=== PATIENT | female | born 1980 | race Caucasian/White ===

== ENCOUNTER 2016-05-28 23:49 | Emergency (ER) | payer SELFPAY ==
--- NOTE | 2016-05-29 01:13 | ER Document Report ---
ED Medical Screen (RME) - General Stated Complaint: ABDOMINAL PAIN AND STRANGE RASH Time seen by provider: 01:09 Mode of Arrival: Ambulatory Information source: Patient Notes: 35-year-old female presents to ED for right upper quadrant pain. She is 5-1/2 weeks states her nausea is no more than her normal nausea. She also has a rash to her abdomen. She states she had one little spot on her left upper abdomen about 2 weeks ago and now it's all over her abdomen. Patient states she was here about 2 months ago with right upper quadrant pain and they diagnosed her with ovarian cyst. I have greeted and performed a rapid initial assessment of this patient. A comprehensive ED assessment and evaluation of the patient, analysis of test results and completion of medical decision making process will be conducted by an additional ED providers. TRAVEL OUTSIDE OF THE [place] IN LAST 30 DAYS: No - Related Data Allergies/Adverse Reactions: clindamycin Adverse Reaction (Mild, Verified 05/29/16 01:09) Hives Past Medical History Psychiatric Medical History: Reports: Hx Anxiety Past Surgical History: Reports: Hx Gynecologic Surgery - Left ectopic removal - Immunizations Hx Diphtheria, Pertussis, Tetanus Vaccination: No Physical Exam - Vital signs Vitals: Temp Pulse Resp BP Pulse Ox 98.1 F 79 16 107/63 100 05/28/16 23:59 05/28/16 23:59 05/28/16 23:59 05/28/16 23:59 05/28/16 23:59 Course - Vital Signs Vital signs: Temp Pulse Resp BP Pulse Ox 98.1 F 79 16 107/63 100 05/28/16 23:59 05/28/16 23:59 05/28/16 23:59 05/28/16 23:59 05/28/16 23:59
[2016-05-29 03:15] LABS: ABSOLUTE EOSINOPHILS # (AUTO) 0.3 10^3/uL (0.0-0.6); ABSOLUTE LYMPHOCYTES (AUTO) 3.2 10^3/uL (0.5-4.7); ABSOLUTE MONOCYTES (AUTO) 0.6 10^3/uL (0.1-1.4); ABSOLUTE NEUT (AUTO) 5.9 10^3/uL (1.7-8.2); BASOPHILS % (AUTO) 0.5 % (0-2); EOSINOPHILS % (AUTO) 2.8 % (0-6); HEMATOCRIT 43.3 % (36.0-47.0); HEMOGLOBIN 15.2 g/dL (12.0-15.5); HGB HCT DIFFERENCE 2.3; LYMPHOCYTES % (AUTO) 31.7 % (13-45); MEAN CORPUSCULAR HEMOGLOBIN 31.2 pg (27.0-33.4); MEAN CORPUSCULAR VOLUME 89 fl (80-97); MONOCYTES % (AUTO) 5.9 % (3-13); RED BLOOD COUNT 4.86 10^6/uL (3.72-5.28); RED CELL DISTRIBUTION WIDTH 12.3 % (11.5-14.0); SEGMENTED NEUTROPHILS % (AUTO) 59.1 % (42-78)
[2016-05-29 03:26] LABS: APPEARANCE,URINE CLEAR; BILIRUBIN,URINE NEGATIVE (NEGATIVE); GLUCOSE, URINE NEGATIVE (NEGATIVE); KETONES,URINE NEGATIVE (NEGATIVE); LEUKOCYTE ESTERASE,URINE NEGATIVE (NEGATIVE); NITRITE,URINE NEGATIVE (NEGATIVE); PROTEIN,URINE NEGATIVE (NEGATIVE); URINE SPECIFIC GRAVITY 1.012; UROBILINOGEN,URINE NEGATIVE mg/dL (<2.0)
[2016-05-29 03:31] LABS: ALANINE AMINOTRANSFERASE 26 U/L (9-52); ALBUMIN 4.3 g/dL (3.5-5.0); ALKALINE PHOSPHATASE 39 U/L (38-126); ANION GAP 10 (5-19); ASPARTATE AMINO TRANSFERASE 19 U/L (14-36); BILIRUBIN,TOTAL 0.5 mg/dL (0.2-1.3); BLOOD UREA NITROGEN 12 mg/dL (7-20); CALCIUM 9.9 mg/dL (8.4-10.2); CARBON DIOXIDE 27 mmol/L (22-30); CHLORIDE 102 mmol/L (98-107); CREATININE RESULT 0.73 mg/dL (0.52-1.25); GLUCOSE 85 mg/dL (75-110); LIPASE 155.2 U/L (23-300); TOTAL PROTEIN 7.4 g/dL (6.3-8.2)
--- NOTE | 2016-05-29 07:07 | ER Document Report ---
ED General - General Mode of Arrival: Ambulatory Information source: Patient TRAVEL OUTSIDE OF THE [place].S. IN LAST 30 DAYS: No - HPI Patient complains to provider of: Abdominal Pain Onset: Yesterday Onset/Duration: Sudden Associated symptoms: Other - Rash Similar symptoms previously: Yes - 03/12/2017 <SHANTA BOWMAN - Last Filed: 05/29/16 07:02> <MITCH ARAYA - Last Filed: 05/29/16 10:11> - General Chief Complaint: Abdominal Pain Stated Complaint: ABDOMINAL PAIN AND STRANGE RASH Notes: Patient is a 35-year-old female, with history of ectopic , presenting to the emergency department concerned of right suprapubic abdominal pain. Patient was seen here 03/12/2017 where she was diagnosed with a right ovarian cyst. Patient has not yet been seen by an ENROBER for her , but she has an appointment 06/15/2016 at [facility] in [place]. Patient wants to make sure her pain is not from another ectopic . Patient also is concerned about a rash on her abdomen that has slowly been spreading and becoming progressively more itchy. (SHANTA BOWMAN) - Related Data Allergies/Adverse Reactions: clindamycin Adverse Reaction (Mild, Verified 05/29/16 01:09) Hives Past Medical History - General Information source: Patient - Social History Smoking Status: Current Every Day Smoker Cigarette use (# per day): Yes Chew tobacco use (# tins/day): No Frequency of alcohol use: None Drug Abuse: None Family History: Reviewed & Not Pertinent Renal/ Medical History: Reports: Hx Ectopic , Hx Ovarian Cysts. Denies: Hx Peritoneal Dialysis Psychiatric Medical History: Reports: Hx Anxiety Past Surgical History: Reports: Hx Gynecologic Surgery - Left ectopic removal - Immunizations Hx Diphtheria, Pertussis, Tetanus Vaccination: No <SHANTA BOWMAN - Last Filed: 05/29/16 07:02> Review of Systems - Review of Systems Constitutional: No symptoms reported EENT: No symptoms reported Cardiovascular: No symptoms reported Respiratory: No symptoms reported Gastrointestinal: See HPI, Abdominal pain - Right suprapubic Genitourinary: No symptoms reported Female Genitourinary: See HPI, Musculoskeletal: No symptoms reported Skin: See HPI, Rash - Abdominal Hematologic/Lymphatic: No symptoms reported Neurological/Psychological: No symptoms reported -: Yes All other systems reviewed and negative <SHANTA BOWMAN - Last Filed: 05/29/16 07:02> Physical Exam - General General appearance: Appears well, Alert In distress: None - HEENT Head: Normocephalic, Atraumatic Eyes: Normal Pupils: PERRL - Respiratory Respiratory status: No respiratory distress Chest status: Nontender Breath sounds: Normal Chest palpation: Normal - Cardiovascular Rhythm: Regular Heart sounds: Normal auscultation Murmur: No - Abdominal Inspection: Other - See skin exam Distension: No distension Bowel sounds: Normal Tenderness: Tender - R. suprapubic tenderness to palpation - Back Back: Normal, Nontender - Extremities General upper extremity: Normal inspection, Nontender, Normal color, Normal ROM , Normal temperature General lower extremity: Normal inspection, Nontender, Normal color, Normal ROM , Normal temperature - Neurological Neuro grossly intact: Yes Cognition: Normal [place] Coma Scale Eye Opening: Spontaneous Mary Jo Coma Scale Verbal: Oriented Mary Jo Coma Scale Motor: Obeys Commands [place] Coma Scale Total: 15 Speech: Normal - Psychological Associated symptoms: Normal affect, Normal mood - Skin Skin Temperature: Warm Skin Moisture: Dry Skin irregularity: Rash Location of irregularity: Abdomen Character of irregularity: Other - Round (sized varies), erythematous, dry. Looks comparable to tinea versicolor. <SHANTA BOWMAN - Last Filed: 05/29/16 07:02> Course - Laboratory Result Diagrams: 05/29/16 02:55 05/29/16 02:55 <SHANTA BOWMAN - Last Filed: 05/29/16 07:02> - Laboratory Result Diagrams: 05/29/16 02:55 05/29/16 02:55 <MITCH ARAYA - Last Filed: 05/29/16 10:11> - Vital Signs Vital signs: Temp Pulse Resp BP Pulse Ox 97.6 F 79 16 107/63 100 05/29/16 07:30 05/28/16 23:59 05/28/16 23:59 05/28/16 23:59 05/28/16 23:59 (SHANTA BOWMAN) (MITCH ARAYA) - Laboratory Laboratory results interpreted by me: 05/29/16 02:55 Beta HCG, Quant 3511.20 H (SHANTA BOWMAN) (MITCH ARAYA) Discharge <SHANTA BOWMAN - Last Filed: 05/29/16 07:02> <QUIANA,MITCH - Last Filed: 05/29/16 10:11> - Discharge Clinical Impression: Pelvic pain affecting in first trimester, antepartum, Tinea versicolor Qualifiers: Weeks of gestation: less than 8 weeks Qualified Code(s): Z3A.01 - Less than 8 weeks gestation of Condition: Stable Disposition: HOME, SELF-CARE Additional Instructions: Tinea Versicolor: Tinea Versicolor is a fungus infection. Most often, it appears on the upper trunk, neck, shoulders, and face. It usually occurs in young adults. Tinea Versicolor is harmless. The spots of fungus infection may be home appliance installer than the normal skin during the summer because the spots don't warren. In the winter (or on areas of covered skin) they are usually darker than surrounding skin. Pelvic Pain in : Lower abdominal pain during can have many causes. We look for serious causes such as appendicitis, tubal , miscarriage, placental separation, or urinary tract infection. Less serious causes of pain include corpus luteum cyst (ovarian cyst of ) or stretching of the pelvic tissues by the enlarging uterus. Sometimes the pain comes from the bowels. If no specific cause for the pain is found, we attribute the pain to stretching of the uterine ligaments. This is called "round ligament strain." It is not dangerous. Just rest until the pain goes away. Call us or come back for reexamination if any problems occur, such as: (1) Pain that becomes more severe, steady, or becomes concentrated in one specific area. Also, pain that is more severe with movement or coughing. (2) Vomiting that persists or becomes more frequent. (3) Blood in the vomitus, urine, or bowel movements. Blood in the stool may have a tarry or black appearance. (4) Shaking chills or fever greater than 100 degrees. (5) The abdomen becomes more distended or swollen. (6) Bowel movements cease. (7) Vaginal bleeding. THE ULTRASOUND SHOWS A POSSIBLE EARLY . FOLLOW UP WITH [facility] THIS WEEK FOR REPEAT HORMONE LEVELS AND ULTRSOUND. YOU CAN ALSO ASK ABOUT WHEN TO START TREATING THE SKIN RASH. RETURN TO THE EMERGENCY ROOM IF ANY NEW OR WORSENING SYMPTOMS. Scribe Attestation: 05/29/16 10:11 I personally performed the services described in the documentation, reviewed and edited the documentation which was dictated to the scribe in my presence, and it accurately records my words and actions. (MITCH ARAYA) Scribe Documentation - Scribe Written by Scribe:: Shanta Bowman 05/29/2016 0702 acting as scribe for :: Quiana <SHANTA BOWMAN - Last Filed: 05/29/16 07:02>
[2016-05-29 10:25] VITALS: BP 101/61
== END 2016-05-29 10:17 | disposition home or self-care (01) ==
LOC: ER 23:49
DX: O34.81 Maternal care for other abnormalities of pelvic organs, first trimester (principal); N83.201 Unspecified ovarian cyst, right side; O26.891 Other specified pregnancy related conditions, first trimester; R10.2 Pelvic and perineal pain; O98.811 Other maternal infectious and parasitic diseases complicating pregnancy, first trimester; B36.0 Pityriasis versicolor; O99.331 Smoking (tobacco) complicating pregnancy, first trimester; F17.210 Nicotine dependence, cigarettes, uncomplicated; Z3A.01 Less than 8 weeks gestation of pregnancy; Z87.59 Personal history of other complications of pregnancy, childbirth and the puerperium
CPT/HCPCS: 36415; 76817; 80053; 81001; 83690; 84702; 85025; 99284

== ENCOUNTER 2016-06-07 20:58 | Emergency (ER) | payer SELFPAY ==
--- NOTE | 2016-06-07 21:47 | ER Document Report ---
ED Medical Screen (RME) - General Stated Complaint: ABDOMINAL PAINS Notes: 35 yo female c/o c/o right sided abdominal pain intermittanly x 2 days. pt is 7 wks . pt is presently being worked up for possible ectopic. TRAVEL OUTSIDE OF THE [place] IN LAST 30 DAYS: No - Related Data Allergies/Adverse Reactions: clindamycin Adverse Reaction (Mild, Verified 05/29/16 01:09) Hives Past Medical History Renal/ Medical History: Reports: Hx Ectopic , Hx Ovarian Cysts. Denies: Hx Peritoneal Dialysis Psychiatric Medical History: Reports: Hx Anxiety Past Surgical History: Reports: Hx Gynecologic Surgery - Left ectopic removal - Immunizations Hx Diphtheria, Pertussis, Tetanus Vaccination: No Physical Exam - Vital signs Vitals: Temp Pulse Resp BP Pulse Ox 98.1 F 76 16 112/59 L 100 06/07/16 21:23 06/07/16 21:23 06/07/16 21:23 06/07/16 21:23 06/07/16 21:23 Course - Vital Signs Vital signs: Temp Pulse Resp BP Pulse Ox 98.1 F 76 16 112/59 L 100 06/07/16 21:23 06/07/16 21:23 06/07/16 21:23 06/07/16 21:23 06/07/16 21:23
--- NOTE | 2016-06-08 02:37 | ER Document Report ---
ED General - General Chief Complaint: Abdominal Pain Stated Complaint: ABDOMINAL PAINS Notes: Patient is a 35 of female presents with complaint of abdominal pain and . This is her fifth . She has to live children. One miscarriage. She had one ectopic that ruptured and cryosurgery. She was seen for a 20th. Ultrasound showed a possible gestational sac but they cannot confirm an actual IUP. Follow-up with her OB doctor and she said that her hCG level initially increased but then stabilized. Patient is scheduled for a repeat ultrasound June 14; however, patient says her pain became worse tonight if her skin to the ER. She said pain was mostly in the right side. She has been constipated is well. She thinks that the pain may be related constipation but she is unsure. Pain is improved now comparison to what it was earlier today. No fevers. No bleeding. TRAVEL OUTSIDE OF THE [place] IN LAST 30 DAYS: No - Related Data Allergies/Adverse Reactions: clindamycin Adverse Reaction (Mild, Verified 05/29/16 01:09) Hives Home Medications: Current Home Medications Vit W-Ca,Fe,FA(<1 mg) [ Vitamins] 1 each PO DAILY 06/08/16 [ History] Past Medical History - Social History Smoking Status: Current Every Day Smoker Chew tobacco use (# tins/day): No Frequency of alcohol use: None Drug Abuse: None Family History: Reviewed & Not Pertinent Patient has suicidal ideation: No Patient has homicidal ideation: No Renal/ Medical History: Reports: Hx Ectopic , Hx Ovarian Cysts. Denies: Hx Peritoneal Dialysis Psychiatric Medical History: Reports: Hx Anxiety Past Surgical History: Reports: Hx Gynecologic Surgery - Left ectopic removal - Immunizations Hx Diphtheria, Pertussis, Tetanus Vaccination: No Review of Systems - Review of Systems Notes: My Normal Review Basic REVIEW OF SYSTEMS: CONSTITUTIONAL : Denies fever, chills, or sweats. Denies recent illness. RESPIRATORY: Denies cough, cold, or chest congestion. Denies shortness of breath, difficulty breathing, or wheezing. GASTROINTESTINAL: Denies abdominal pain. Denies nausea, vomiting, or diarrhea. Denies constipation. Last BM: GENITOURINARY: Denies difficulty urinating, painful urination, burning, frequency, or blood in urine. FEMALE GENITOURINARY: Abdominal pain in MUSCULOSKELETAL: Denies neck or back pain or joint pain or swelling. SKIN: Denies rash or skin lesions.s. NEUROLOGICAL: Denies altered mental status or loss of consciousness. Denies headache. Denies weakness or paralysis or loss of use of either side. Denies problems with gait or speech. Denies sensory or motor loss. ALL OTHER SYSTEMS REVIEWED AND NEGATIVE. Physical Exam - Vital signs Vitals: Temp Pulse Resp BP Pulse Ox 98.1 F 76 16 112/59 L 100 06/07/16 21:23 06/07/16 21:23 06/07/16 21:23 06/07/16 21:23 06/07/16 21:23 - Notes Notes: General Appearance: Well nourished, alert, cooperative, no acute distress, no obvious discomfort. Well-appearing Vitals: reviewed, See vital signs table. Head: no swelling or tenderness to the head Eyes: PERRL, EOMI, Conjuctiva clear Neck: Supple, no neck tenderness, No thyromegaly Lungs: No wheezing, No rales, No rhonci, No accessory muscle use, good air exchange bilaterally. Heart: Normal rate, Regular rythm, No murmur, no rub Abdomen: Normal BS, soft, No rigidity, No reproducible abdominal tenderness to palpation, No guarding, no rebound, no abdominal masses, no organomegaly Extremities: strength 5/5 in all extremities, good pulses in all extremities, no swelling or tenderness in the extremities, no edema. Skin: warm, dry, appropriate color, no rash Neuro: speech clear, oriented x 3, normal affect, responds appropriately to questions. Course - Vital Signs Vital signs: Temp Pulse Resp BP Pulse Ox 98.1 F 86 17 98/46 L 100 06/07/16 21:23 06/08/16 03:20 06/08/16 03:20 06/08/16 03:20 06/08/16 03:20 - Laboratory Laboratory results interpreted by me: 06/07/16 21:50 Serum HCG, Qual POSITIVE H - Transfer of Care Notes: 06/08/16 03:36 Patient's ultrasound shows an IUP. There is a small subchorionic hemorrhage. Patient's had no actual vaginal bleeding. Patient had a miscarriage as well as an ectopic in the past. She's never had received broken because she is Rh+. Her Rh status has not rechecked her due to her being sure of her history of not having to receive the medication and past due to her being Rh+. Patient has a repeat ultrasound scheduled for June 14 with her OB doctor. Patient encouraged keep that appointment. Patient encouraged return to ER immediately if she has worsening pain, heavy bleeding, or feels unwell. Patient agrees with plan and will be discharged home. Dictation of this chart was performed using voice recognition software; therefore, there may be some unintended grammatical errors. Discharge - Discharge Clinical Impression: Abdominal pain during Qualifiers: Trimester: first trimester Qualified Code(s): O26.891 - Other specified related conditions, first trimester; R10.9 - Unspecified abdominal pain Subchorionic hemorrhage Qualifiers: Fetus number: single or unspecified fetus Trimester: first trimester Qualified Code(s): O41.8X10 - Other specified disorders of amniotic fluid and membranes, first trimester, not applicable or unspecified Condition: Good Disposition: HOME, SELF-CARE Additional Instructions: Please follow up closely with your OB doctor on the eighth as scheduled. Please avoid sexual activity or heavy lifting until cleared by OB doctor. Please return to the ER if you have bleeding or worsening pain or fevers. Forms: Return to Work
[2016-06-08 02:46] LABS: APPEARANCE,URINE CLEAR; BILIRUBIN,URINE NEGATIVE (NEGATIVE); GLUCOSE, URINE NEGATIVE (NEGATIVE); KETONES,URINE NEGATIVE (NEGATIVE); LEUKOCYTE ESTERASE,URINE NEGATIVE (NEGATIVE); NITRITE,URINE NEGATIVE (NEGATIVE); PROTEIN,URINE NEGATIVE (NEGATIVE); URINE SPECIFIC GRAVITY 1.009; UROBILINOGEN,URINE NEGATIVE mg/dL (<2.0)
[2016-06-08 03:20] VITALS: BP 98/46
== END 2016-06-08 03:53 | disposition home or self-care (01) ==
LOC: ER 20:58
DX: O26.891 Other specified pregnancy related conditions, first trimester (principal); O41.8X10 Other specified disorders of amniotic fluid and membranes, first trimester, not applicable or unspecified; R10.9 Unspecified abdominal pain; F17.210 Nicotine dependence, cigarettes, uncomplicated; Z3A.01 Less than 8 weeks gestation of pregnancy
CPT/HCPCS: 36415; 76817; 81001; 84702; 84703; 93976; 99284

== ENCOUNTER 2016-06-17 09:27 | Emergency (ER) | payer SELFPAY ==
--- NOTE | 2016-06-17 11:21 | ER Document Report ---
ED General - General Chief Complaint: Vaginal Bleeding Stated Complaint: VAGINAL BLEEDING Time seen by provider: 11:15 Mode of Arrival: Ambulatory Information source: Patient Notes: This is a 35-year-old female 6, para 2, 2 miscarriages, one ectopic . Patient is currently approximately 8 weeks and she presents with some pelvic cramping and small amount of vaginal bleeding. Patient denies any significant pain. Patient denies fever, chills, nausea or vomiting. TRAVEL OUTSIDE OF THE [place] IN LAST 30 DAYS: No - HPI Onset: Yesterday Onset/Duration: Gradual Quality of pain: Cramping Severity: None Pain Level: Denies Associated symptoms: denies: Chills, Fever Exacerbated by: Denies Relieved by: Denies Similar symptoms previously: Yes Recently seen / treated by doctor: Yes - Related Data Allergies/Adverse Reactions: clindamycin Adverse Reaction (Mild, Verified 06/17/16 09:35) Hives Past Medical History - General Information source: Patient - Social History Smoking Status: Current Every Day Smoker Cigarette use (# per day): Yes - Half a pack per day Chew tobacco use (# tins/day): No Frequency of alcohol use: None Drug Abuse: None Lives with: Family Family History: Reviewed & Not Pertinent Patient has suicidal ideation: No Patient has homicidal ideation: No - Medical History Medical History: Negative Renal/ Medical History: Reports: Hx Ectopic , Hx Ovarian Cysts. Denies: Hx Peritoneal Dialysis Psychiatric Medical History: Reports: Hx Anxiety Past Surgical History: Reports: Hx Gynecologic Surgery - Left ectopic removal - Immunizations Hx Diphtheria, Pertussis, Tetanus Vaccination: No Review of Systems - Review of Systems Constitutional: denies: Chills, Fever EENT: No symptoms reported Cardiovascular: No symptoms reported Respiratory: No symptoms reported Gastrointestinal: No symptoms reported Genitourinary: No symptoms reported Female Genitourinary: See HPI Musculoskeletal: No symptoms reported Skin: No symptoms reported Hematologic/Lymphatic: No symptoms reported Neurological/Psychological: No symptoms reported Physical Exam - Vital signs Vitals: Temp Pulse Resp BP Pulse Ox 98.6 F 91 20 108/67 100 06/17/16 09:32 06/17/16 09:32 06/17/16 09:32 06/17/16 09:32 06/17/16 09:32 Notes: Physical exam: GENERAL: 35-year-old female, alert and oriented 3, no acute distress. HEAD: Atraumatic, normocephalic. EYES: Pupils equal round and reactive to light, extraocular movements intact, sclera anicteric, conjunctiva are normal. ENT: TMs normal, nares patent, oropharynx clear without exudates. Moist mucous membranes. NECK: Normal range of motion, supple without lymphadenopathy or JVD. LUNGS: Breath sounds clear to auscultation bilaterally and equal. No wheezes rales or rhonchi. HEART: Regular rate and rhythm without murmurs, rubs or gallops. ABDOMEN: Soft, normoactive bowel sounds. No tenderness to palpation. No guarding, no rebound. No masses appreciated. Pelvic: External genitalia normal, os closed, small amount of blood in the vaginal canal. No cervical motion tenderness, no adnexal tenderness, no masses. EXTREMITIES: Normal range of motion, no pitting or edema. No clubbing or cyanosis. NEUROLOGICAL: Cranial nerves II through XII grossly intact. Normal speech, normal gait. PSYCH: Normal mood, normal affect. SKIN: Warm, Dry, normal turgor, no rashes or lesions noted. Bedside ultrasound: Reveals an intrauterine at approximately 8 weeks gestation with a heartbeat of 160-167. There are two very small subchorionic hemorrhages. Course - Vital Signs Vital signs: Temp Pulse Resp BP Pulse Ox 99.0 F 71 18 104/65 100 06/17/16 12:24 06/17/16 12:24 06/17/16 12:24 06/17/16 12:24 06/17/16 12:24 - Laboratory Laboratory results interpreted by me: 06/17/16 10:25 Beta HCG, Quant [id number] H Discharge - Discharge Clinical Impression: vaginal bleeding, intrauterine Condition: Stable Disposition: HOME, SELF-CARE Additional Instructions: Note: The baby's heartbeat was 160-267 Your beta hCG (baby level) is rising appropriately Recommendations: Rest, drink plenty of fluids. Tylenol was okay. Do not take any ibuprofen/Advil/Motrin or aspirin. We normally recommend to avoid intercourse and heavy lifting in the setting of vaginal bleed beginning in early . Recommend you follow-up with your OB doctor. Referrals: JENNIE FORBES MD [Primary Care Provider] - Follow up as needed
[2016-06-17 12:28] LABS: CHLAM PCR NOT DETECTED (NOT DETECT)
[2016-06-17 12:51] VITALS: BP 104/65
== END 2016-06-17 12:29 | disposition home or self-care (01) ==
LOC: ER 09:27
DX: O20.9 Hemorrhage in early pregnancy, unspecified (principal); O99.331 Smoking (tobacco) complicating pregnancy, first trimester; F17.210 Nicotine dependence, cigarettes, uncomplicated; Z3A.08 8 weeks gestation of pregnancy; Z88.3 Allergy status to other anti-infective agents
CPT/HCPCS: 36415; 84702; 86900; 86901; 87210; 87491; 87591; 99284

== ENCOUNTER 2016-07-23 19:42 | Emergency (ER) | payer SELFPAY ==
--- NOTE | 2016-07-23 22:48 | ER Document Report ---
ED GI/ - General Mode of Arrival: Ambulatory Information source: Patient TRAVEL OUTSIDE OF THE [place] IN LAST 30 DAYS: No - HPI Patient complains to provider of: Vaginal bleeding Associated symptoms: Other - See above - General Chief Complaint: Vaginal Bleeding Stated Complaint: Vaginal Bleeding Notes: Patient is a 35 year old female who presents to the emergency department complaining of vaginal bleeding onset 3 days ago. Patient reports that she has had light spotting for the past 6 weeks after being told she had a subchorionic hemorrhage, in the past few days the bleeding has increased but has remained brownish. Patient also complains of constant cramping. Patient states she is 13 weeks and with one miscarriage and 1 ectopic which was surgically removed. Patient denies recent intercourse. PCP: [facility] ([facility]) - Related Data Allergies/Adverse Reactions: clindamycin Adverse Reaction (Mild, Verified 06/17/16 09:35) Hives Past Medical History - General Information source: Patient - Social History Smoking Status: Unknown if Ever Smoked Family History: Reviewed & Not Pertinent Renal/ Medical History: Reports: Hx Ectopic , Hx Ovarian Cysts Psychiatric Medical History: Reports: Hx Anxiety Past Surgical History: Reports: Hx Gynecologic Surgery - Left ectopic removal - Immunizations Hx Diphtheria, Pertussis, Tetanus Vaccination: No Review of Systems - Review of Systems Constitutional: No symptoms reported EENT: No symptoms reported Cardiovascular: No symptoms reported Respiratory: No symptoms reported Gastrointestinal: See HPI, Abdominal pain Genitourinary: No symptoms reported Female Genitourinary: See HPI, Vaginal bleeding Musculoskeletal: No symptoms reported Skin: No symptoms reported Hematologic/Lymphatic: No symptoms reported Neurological/Psychological: No symptoms reported -: Yes All other systems reviewed and negative Physical Exam - Vital signs Interpretation: Normal - General General appearance: Appears well, Alert - HEENT Head: Normocephalic, Atraumatic - Respiratory Respiratory status: No respiratory distress Chest status: Nontender Breath sounds: Normal Chest palpation: Normal - Cardiovascular Rhythm: Regular Heart sounds: Normal auscultation Murmur: No - Abdominal Inspection: Normal Distension: No distension Bowel sounds: Normal Tenderness: Nontender Organomegaly: No organomegaly - Extremities General upper extremity: Normal inspection General lower extremity: Normal inspection - Neurological Neuro grossly intact: Yes Cognition: Normal Orientation: AAOx4 Mary Jo Coma Scale Eye Opening: Spontaneous Mary Jo Coma Scale Verbal: Oriented Mary Jo Coma Scale Motor: Obeys Commands [place] Coma Scale Total: 15 Speech: Normal - Psychological Associated symptoms: Normal affect, Normal mood - Skin Skin Temperature: Warm Skin Moisture: Dry Skin Color: Normal Course - Re-evaluation Re-evalutation: 07/24/16 02:50 Patient presents emergency Department with cramping and spotting for the past 3 days. Patient has been seen multiple times in this current she is one miscarriage one ectopic . An ultrasound on 34 which showed 6 weeks and 5 days. Started having some spotting and some cramping 3 days ago. On examination no acute abdominal findings well-appearing and nontoxic ultrasound shows her to be 13 weeks and 3 days intrauterine . This time she is given instructions on threatened miscarriage close follow-up with [facility] in one to 2 days and discussed reasons for ED return sooner including increased pain bleeding or any other concerns speculative treatment (MARIBELL WANG) - Laboratory Laboratory results interpreted by me: 07/23/16 07/23/16 23:07 23:07 Beta HCG, Quant [id number] H Urine Blood SMALL H Urine Ascorbic Acid 20 H Discharge - Discharge Clinical Impression: Threatened miscarriage Condition: Stable Disposition: HOME, SELF-CARE Instructions: Threatened Miscarriage (ON LICENSE OF [facility]) Referrals: JENNIE FORBES MD [Primary Care Provider] - Follow up tomorrow (In one to 2 days return for increasing worsening or new symptoms) Scribe Attestation: 07/25/16 21:17 i personally performed the services described in the documentation, reviewed the documentation recorded by the scribe in my presence and it accurately and completely records my words and actions (MARIBELL WANG) Scribe Documentation - Scribe Written by Roman:: Mary Chi. 07/24/16, 0025 acting as scribe for :: Ivan
[2016-07-23 23:41] LABS: APPEARANCE,URINE CLEAR; BILIRUBIN,URINE NEGATIVE (NEGATIVE); GLUCOSE, URINE NEGATIVE (NEGATIVE); KETONES,URINE NEGATIVE (NEGATIVE); LEUKOCYTE ESTERASE,URINE NEGATIVE (NEGATIVE); NITRITE,URINE NEGATIVE (NEGATIVE); PROTEIN,URINE NEGATIVE (NEGATIVE); URINE SPECIFIC GRAVITY 1.026; UROBILINOGEN,URINE NEGATIVE mg/dL (<2.0)
== END 2016-07-24 03:00 | disposition home or self-care (01) ==
LOC: ER 19:42
DX: O20.0 Threatened abortion (principal); O26.891 Other specified pregnancy related conditions, first trimester; R10.9 Unspecified abdominal pain; Z3A.13 13 weeks gestation of pregnancy; Z87.59 Personal history of other complications of pregnancy, childbirth and the puerperium; Z98.890 Other specified postprocedural states
CPT/HCPCS: 36415; 51701; 76801; 81001; 84702; 93976; 99284

== ENCOUNTER 2016-09-14 22:02 | Outpatient (CLI) | payer SELFPAY ==
[2016-09-15 00:06] LABS: APPEARANCE,URINE SLIGHTLY-CLOUDY; BILIRUBIN,URINE NEGATIVE (NEGATIVE); GLUCOSE, URINE NEGATIVE (NEGATIVE); KETONES,URINE NEGATIVE (NEGATIVE); LEUKOCYTE ESTERASE,URINE NEGATIVE (NEGATIVE); NITRITE,URINE NEGATIVE (NEGATIVE); PROTEIN,URINE NEGATIVE (NEGATIVE); URINE BARBITURATES SCREEN NEGATIVE; URINE METHADONE SCREEN NEGATIVE; URINE OPIATES LOW NEGATIVE; URINE PHENCYCLIDINE SCREEN NEGATIVE; URINE SPECIFIC GRAVITY 1.019; UROBILINOGEN,URINE NEGATIVE mg/dL (<2.0)
[2016-09-15 00:07] LABS: BACTERIA,URINE TRACE /HPF
== END 2016-09-15 00:01 | disposition home or self-care (01) ==
LOC: LC 22:02
PROVIDERS: ATTEND Obstetrics & Gynecology
PROC: 4A1HXCZ Monitoring of Products of Conception, Cardiac Rate, External Approach (ICD-10-PCS; principal; 2016-09-14)
DX: O47.02 False labor before 37 completed weeks of gestation, second trimester (principal); Z3A.20 20 weeks gestation of pregnancy
CPT/HCPCS: 80307; 81001

== ENCOUNTER 2016-10-18 22:26 | Emergency (ER) | payer SELFPAY ==
--- NOTE | 2016-10-19 00:17 | ER Document Report ---
ED General - General Chief Complaint: Leg Swelling Stated Complaint: SWOLLEN,TENDER SPOT ON CALF,HEADACHE Time Seen by Provider: 10/19/16 00:01 Notes: Patient is a 36-year-old female who comes emergency department for 2 complaints. First complaint is a tender area in her right calf, she states 4 days ago she had a terrible cramp in it, she states this is improved but she still has a tender spot but feels like it is swollen at the base of her right calf. She denies swelling below this in her leg. 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 She denies history of blood clot. She denies any daily medications. Patient second complaint is a migraine headache, although she states that she has had almost complete resolution of the headache after checking in, she took Tylenol before checking into the emergency department. She states she gets this frequently, she has had them for years. She states she just is hoping for prescription for something to take in addition to the Tylenol for headaches which are intermittent at home. Denies head injury, fever, abdominal pain, flank pain, she states she is feeling the baby move normally. TRAVEL OUTSIDE OF THE [place] IN LAST 30 DAYS: No - Related Data Allergies/Adverse Reactions: clindamycin Adverse Reaction (Mild, Verified 09/14/16 22:17) Hives Past Medical History - General Information source: Patient - Social History Smoking Status: Never Smoker Frequency of alcohol use: None Drug Abuse: None Lives with: Family Family History: Reviewed & Not Pertinent Patient has suicidal ideation: No Patient has homicidal ideation: No Renal/ Medical History: Reports: Hx Ectopic , Hx Ovarian Cysts. Denies: Hx Peritoneal Dialysis Psychiatric Medical History: Reports: Hx Anxiety Past Surgical History: Reports: Hx Gynecologic Surgery - Left ectopic removal - Immunizations Hx Diphtheria, Pertussis, Tetanus Vaccination: No Review of Systems - Review of Systems Constitutional: No symptoms reported EENT: No symptoms reported Cardiovascular: See HPI Respiratory: No symptoms reported Gastrointestinal: No symptoms reported Genitourinary: No symptoms reported Female Genitourinary: No symptoms reported Musculoskeletal: See HPI Skin: No symptoms reported Hematologic/Lymphatic: No symptoms reported Neurological/Psychological: See HPI Physical Exam - Vital signs Vitals: Temp Pulse Resp BP Pulse Ox 98.1 F 83 16 110/61 100 10/18/16 22:45 10/18/16 22:45 10/18/16 22:45 10/18/16 22:45 10/18/16 22:45 Interpretation: Normal - General General appearance: Appears well, Alert In distress: None - Patient smiling, alert, well-appearing - HEENT Head: Normocephalic, Atraumatic Eyes: Normal Conjunctiva: Normal Extraocular movements intact: Yes Eyelashes: Normal Pupils: PERRL Nasal: Normal Mouth/Lips: Normal Mucous membranes: Normal Pharynx: Normal Neck: Normal - Respiratory Respiratory status: No respiratory distress Chest status: Nontender Breath sounds: Normal Chest palpation: Normal - Cardiovascular Rhythm: Regular. No: Tachycardia Heart sounds: Normal auscultation, S1 appreciated, S2 appreciated Murmur: No - Abdominal Inspection: Gravid female Distension: No distension Bowel sounds: Normal Tenderness: Nontender. No: Tender, Guarding Organomegaly: No organomegaly - Back Back: Normal, Nontender. No: Tender - Extremities General upper extremity: Normal inspection, Nontender, Normal color, Normal ROM , Normal temperature General lower extremity: Other - There is some tenderness at the base of the right calf, no swelling, no erythema, no induration or fluctuance, negative Homans sign, no swelling below this, normal distal neurovascular exam. No: Kam's sign - Neurological Neuro grossly intact: Yes Cognition: Normal Orientation: AAOx4 Mary Jo Coma Scale Eye Opening: Spontaneous Mary Jo Coma Scale Verbal: Oriented [place] Coma Scale Motor: Obeys Commands Mary Jo Coma Scale Total: 15 Speech: Normal Motor strength normal: LUE, RUE, LLE, RLE Sensory: Normal - Psychological Associated symptoms: Normal affect, Normal mood - Skin Skin Temperature: Warm Skin Moisture: Dry Skin Color: Normal Course - Re-evaluation Re-evalutation: Patient stating her headache is almost completely resolved, she declines any medication for this. No neurological deficits. Well-appearing and alert. Patient has some right calf tenderness, has some risk factors including and smoking, has never had a blood clot before. Examination does not specifically indicate one but I cannot rule it out because of the risk factors. Unfortunately we do not have any personnel present to perform the Doppler until about 9 hours from now. Discussed with patient. Patient provided with a prescription for this to be performed, she states that she will call in the morning and get this done to evaluate for blood clot. No other concerning abnormalities. Patient states understanding and agreement with plan. - Vital Signs Vital signs: Temp Pulse Resp BP Pulse Ox 97.9 F 81 17 117/71 98 10/19/16 00:20 10/19/16 00:20 10/19/16 00:20 10/19/16 00:20 10/19/16 00:20 Discharge - Discharge Clinical Impression: Right calf pain Headache Qualifiers: Headache type: unspecified Headache chronicity pattern: acute headache Intractability: not intractable Qualified Code(s): R51 - Headache Disposition: HOME, SELF-CARE Additional Instructions: You have risk factors for blood clot, please follow-up with the primary venous Doppler ordered, call the number tomorrow to get this done. Take the Reglan along with 25-50 mg of Benadryl if needed for headaches, you can combine this with Tylenol. Follow-up with primary care/PASSENGER SERVICE SUPERVISOR for Return to emergency department for any concerning or worsening symptoms Prescriptions: Metoclopramide HCl [Reglan] 5 mg PO ASDIR PRN #30 tablet PRN Reason: Forms: Follow-Up Outpatient Testing
[2016-10-19 01:03] VITALS: BP 117/71
== END 2016-10-19 00:19 | disposition home or self-care (01) ==
LOC: ER 22:26
DX: O99.89 Other specified diseases and conditions complicating pregnancy, childbirth and the puerperium (principal); M79.661 Pain in right lower leg; O99.352 Diseases of the nervous system complicating pregnancy, second trimester; G43.909 Migraine, unspecified, not intractable, without status migrainosus; O99.332 Smoking (tobacco) complicating pregnancy, second trimester; Z3A.25 25 weeks gestation of pregnancy
CPT/HCPCS: 99283

== ENCOUNTER → 2016-10-19 | Outpatient (CLI) | payer SELFPAY ==
--- NOTE | 2016-10-19 16:42 | XCELERA REPORT ---
[address] [address] Lower Extremity Venous Evaluation Name: ROSE FLORES Age: 36 yrs Gender: Female : 1980 Patient Status: Outpatient Patient Location: Study Date: 10/19/2016 03:07 PM Procedure: Color flow and duplex imaging of the veins of the right lower extremity as well as the left Common Femoral vein. Reason For Study: RLE PAIN Ordering Physician: GLENIS LAY Performed By: Martin Meza Right Sided Venous Evaluation Normal vessel filling wall to wall, compression and augmentation as well as Colour flow down to the infrageniculate veins. Left Sided Venous Evaluation The left common femoral vein is fully compressible. Spontaneous and phasic flow is present in the left common femoral vein. Interpretation Summary No duplex evidence of DVT or obstruction in the right lower extremity nor in the left Common Femoral vein. : GLENIS LAY > Stalin Glynn
== END ==
LOC: SP 14:57
PROVIDERS: ATTEND Internal Medicine Clinical Cardiac Electrophysiology
DX: M79.604 Pain in right leg (principal)
CPT/HCPCS: 93971

== ENCOUNTER 2016-11-23 04:10 | Inpatient (IN) | payer SELFPAY ==
[2016-11-23] MEDS ORDERED: BETAMET ACET/BETAMET NA INJ 6 MG/1 ML ONE (05:03)
[2016-11-23] MEDS ORDERED: MAGNESIUM SULFATE 8 GM/200 ML RTUPB IV ONE (05:04)
[2016-11-23] MEDS ORDERED: MAGNESIUM SULFATE 6 GM/150 ML IV ONE (05:15)
[2016-11-23] MEDS ORDERED: RINGERS SOLUTION,LACTATED 1,000 ML IV ONE (05:22)
[2016-11-23] MEDS ORDERED: RINGERS SOLUTION,LACTATED 1,000 ML IV PRN (05:22)
[2016-11-23 05:42] LABS: ABSOLUTE EOSINOPHILS # (AUTO) 0.2 10^3/uL (0.0-0.6); ABSOLUTE LYMPHOCYTES (AUTO) 2.5 10^3/uL (0.5-4.7); ABSOLUTE MONOCYTES (AUTO) 0.7 10^3/uL (0.1-1.4); ABSOLUTE NEUT (AUTO) 6.4 10^3/uL (1.7-8.2); BASOPHILS % (AUTO) 0.2 % (0-2); EOSINOPHILS % (AUTO) 1.8 % (0-6); HEMATOCRIT 32.6 % (36.0-47.0); HEMOGLOBIN 11.8 g/dL (12.0-15.5); HGB HCT DIFFERENCE 2.8; LYMPHOCYTES % (AUTO) 25.7 % (13-45); MEAN CORPUSCULAR HEMOGLOBIN 33.2 pg (27.0-33.4); MEAN CORPUSCULAR HGB CONC 36.1 g/dL (32.0-36.0); MEAN CORPUSCULAR VOLUME 92 fl (80-97); MONOCYTES % (AUTO) 7.3 % (3-13); RED BLOOD COUNT 3.54 10^6/uL (3.72-5.28); RED CELL DISTRIBUTION WIDTH 13.3 % (11.5-14.0); WHITE BLOOD COUNT 9.8 10^3/uL (4.0-10.5)
[2016-11-23] MEDS ORDERED: PENICILLIN G-K 5 MILLION UNIT VIAL ONE ×5 (05:46→22:58)
[2016-11-23 05:47] LABS: APPEARANCE,URINE CLEAR; BILIRUBIN,URINE NEGATIVE (NEGATIVE); GLUCOSE, URINE NEGATIVE (NEGATIVE); KETONES,URINE NEGATIVE (NEGATIVE); LEUKOCYTE ESTERASE,URINE NEGATIVE (NEGATIVE); NITRITE,URINE NEGATIVE (NEGATIVE); PROTEIN,URINE NEGATIVE (NEGATIVE); URINE SPECIFIC GRAVITY 1.005; UROBILINOGEN,URINE NEGATIVE mg/dL (<2.0)
[2016-11-23] MEDS ORDERED: PENICILLIN G POTASSIUM 5,000,000 UNIT in DEXTROSE 5%-WATER 100 ML IV ONE (06:00)
[2016-11-23 06:03] LABS: ALANINE AMINOTRANSFERASE 24 U/L (9-52); ALBUMIN 3.4 g/dL (3.5-5.0); ALKALINE PHOSPHATASE 54 U/L (38-126); AMYLASE 52 U/L (30-110); ANION GAP 8 (5-19); ASPARTATE AMINO TRANSFERASE 17 U/L (14-36); BILIRUBIN,DIRECT 0.3 mg/dL (0.0-0.4); BILIRUBIN,TOTAL 0.4 mg/dL (0.2-1.3); BLOOD UREA NITROGEN 6 mg/dL (7-20); CALCIUM 9.2 mg/dL (8.4-10.2); CARBON DIOXIDE 22 mmol/L (22-30); CHLORIDE 107 mmol/L (98-107); CREATININE RESULT 0.54 mg/dL (0.52-1.25); GLUCOSE 74 mg/dL (75-110); LIPASE 102.7 U/L (23-300); POTASSIUM 4.2 mmol/L (3.6-5.0); TOTAL PROTEIN 6.3 g/dL (6.3-8.2)
[2016-11-23] MEDS: MAGNESIUM SULFATE 20 GM/500 ML RTUINJ IV PRN ×3 (06:11→23:32)
[2016-11-23 06:14] LABS: URINE BARBITURATES SCREEN NEGATIVE; URINE METHADONE SCREEN NEGATIVE; URINE OPIATES LOW NEGATIVE; URINE PHENCYCLIDINE SCREEN NEGATIVE
--- NOTE | 2016-11-23 07:10 | L&D Progress Notes ---
PROGRESS NOTES Datetime Report Generated by CPN: 11/23/2016 07:10 PROGRESS NOTE Impression: Labor Plan: Continue Present Management Comment: cont mag, steroids, pcn, valtrex VAGINAL EXAM Dilatation: 2 Dilatation: 2 Effacement: 50 Effacement: 50 Station: -1 Station: -2 Contractions: q1-5 min FETUS A FHR Category: Category I SIGNATURE SIGNATURE: [id number] Signature: with User ID: [email or web address]
[2016-11-23 07:47] LABS: CHLAM PCR NOT DETECTED (NOT DETECT)
[2016-11-23] MEDS ORDERED: PENICILLIN G POTASSIUM 2,500,000 UNIT in DEXTROSE 5%-WATER 50 ML IV SCH (10:00)
[2016-11-23] MEDS: PENICILLIN G-K 5 MILLION UNIT VIAL IV SCH ×4 (11:12→23:09)
[2016-11-23] MEDS ORDERED: VALACYCLOVIR HCL 500 MG TABLET ONE (14:49)
[2016-11-23] MEDS: VALACYCLOVIR HCL 500 MG TABLET PO SCH (15:03)
[2016-11-23] MEDS ORDERED: ONDANSETRON HCL INJ/PF 4 MG/2 ML SDV ONE (15:25)
[2016-11-23] MEDS ORDERED: ONDANSETRON HCL INJ/PF 4 MG/2 ML SDV IV ONE (15:49)
[2016-11-23] MEDS ORDERED: PROMETHAZINE HCL INJ 25 MG/1 ML VIAL IV ONE (16:14)
[2016-11-23] MEDS ORDERED: PROMETHAZINE HCL INJ 25 MG/1 ML VIAL ONE (16:19)
[2016-11-24] MEDS ORDERED: PENICILLIN G-K 5 MILLION UNIT VIAL ONE ×2 (02:56→06:46)
[2016-11-24] MEDS: PENICILLIN G-K 5 MILLION UNIT VIAL IV SCH ×2 (03:03→07:00)
[2016-11-24] MEDS ORDERED: BETAMET ACET/BETAMET NA INJ 6 MG/1 ML ONE ×2 (04:56→05:00)
--- NOTE | 2016-11-24 10:10 | L&D Progress Notes ---
PROGRESS NOTES Datetime Report Generated by CPN: 11/24/2016 10:10 PROGRESS NOTE Impression: Labor Plan: Continue Present Management; Transfer Informed Consent Obtained: Risks, Benefits and Alternatives Discussed Vital Signs : Reviewed; Within Normal Limits Comment: Pt here for labor. Cvx 1.5/50/-1. Only rare ctx now that magnesium off since 0700. Pt comfortable and CAT I NST. Plan to transfer to floor for monitoring overnight. May be able to discharge tomorrow. VAGINAL EXAM Dilatation: 2 Effacement: 50 Station: -1 Contractions: rare FETUS A FHR - Baseline: 125 Monitoring: External US Variability: Moderate 6-25bpm Accelerations: 15X15 Decelerations: None FHR Category: Category I FETUS C SIGNATURE: [id number] Signature: with User ID: [email or web address]
[2016-11-25 09:03] VITALS: BP 107/61
[2016-11-25] MEDS: VALACYCLOVIR HCL 500 MG TABLET PO SCH (09:17)
--- NOTE | 2016-11-25 09:58 | PDOC DISCHARGE SUMMARY ---
General - Admit/Disc Date/PCP Admission Date/Primary Care Provider: 11/23/16 05:10 GORDON PLASCENCIA MD Discharge Date: 11/25/16 - Discharge Diagnosis (1) uterine contractions Is this a current diagnosis for this admission?: Yes Summary: resolved with magnesium sulfate s/p betamethasone 12 mg on 11/24/16 and 11/23/16 (2) Supervision of normal IUP (intrauterine ) in multigravida Is this a current diagnosis for this admission?: Yes Summary: f/u as scheduled with ob provider. - Additional Information Discharge Diet: Regular Discharge Activity: Activity As Tolerated Home Medications: Vit W-Ca,Fe,FA(<1 mg) [ Vitamins] 1 each PO DAILY 06/08/16 Aspirin [Aspirin 81 mg Chewable Tablet] 1 tab PO DAILY 11/23/16 Valacyclovir HCl [Valtrex 500 mg Tablet] 500 mg PO DAILY 11/23/16 History of Present Illness Patient complains of: ctx abodominal pain History of Present Illness: ROSE FLORES is a 36 year old female Physical Exam - Physical Exam Vital Signs: Temp Pulse Resp BP Pulse Ox 98.0 F 83 18 107/61 99 11/25/16 08:28 11/25/16 08:28 11/25/16 08:28 11/25/16 08:28 11/25/16 08:28 Intake & Output 11/24/16 11/25/16 11/26/16 06:59 06:59 06:59 Intake Total 480 Balance 480 General appearance: PRESENT: no acute distress Head exam: PRESENT: atraumatic Mouth exam: PRESENT: moist Respiratory exam: PRESENT: clear to auscultation elizabeth Vascular exam: PRESENT: normal capillary refill GI/Abdominal exam: PRESENT: normal bowel sounds Musculoskeletal exam: PRESENT: ambulatory Neurological exam: PRESENT: alert, oriented to time, oriented to situation, reflexes normal Psychiatric exam: PRESENT: normal mood Skin exam: PRESENT: intact - Gynecological Exam Labia: normal Urethra: normal Introitus: normal Perineum: normal Vagina: other - 1-2/80/-1 Result Laboratory Results: 11/23/16 05:23 11/23/16 05:23 Plan Discharge Plan: d/c home undelivered in stable condition f/u with ob provider return prn if symptoms return
--- NOTE | 2016-11-27 11:36 | RADIOLOGY REPORT (SQ) ---
EXAM DESCRIPTION: U/S OB LIMITED COMPLETED DATE/TIME: 11/23/2016 6:26 am REASON FOR STUDY: BS U/S for EFW, HARRY, Presentation, placenta loc. LIMITATIONS: Targeted, limited transabdominal survey performed as clinically request. COMPARISON: 05/29/2016. FINDINGS: Transabdominal sonogram demonstrates a live intrauterine gestation. Estimated gestational age based on ultrasound biometrics: 31 weeks 3 days Ultrasound based BETTIE: 01/22/2017. heart rate: 158 beats per minute. Placenta: Posterior. Estimated weight: 1499 g +/- 220 g. Estimated weight percentile equals 35, Renard. position: Vertex. HARRY: 12.1 cm. IMPRESSION: Limited survey of a live intrauterine fetus, as above. TECHNICAL DOCUMENTATION: JOB ID: [id number] [employer]- All Rights Reserved
== END 2016-11-25 10:36 | disposition home or self-care (01) | DRG 778 ==
LOC: LC 04:10 → LR 05:10 → 2S 11-24 10:14
PROVIDERS: ADMIT Specialist; ATTEND Specialist
PROC: 4A1HXCZ Monitoring of Products of Conception, Cardiac Rate, External Approach (ICD-10-PCS; principal; 2016-11-23)
DX: O60.03 Preterm labor without delivery, third trimester (principal); O98.313 Other infections with a predominantly sexual mode of transmission complicating pregnancy, third trimester; O99.333 Smoking (tobacco) complicating pregnancy, third trimester; F17.210 Nicotine dependence, cigarettes, uncomplicated; A60.00 Herpesviral infection of urogenital system, unspecified; Z3A.30 30 weeks gestation of pregnancy
CPT/HCPCS: 36415; 76815; 80053; 80307; 81001; 82150; 83690; 83735; 85025; 86592; 86850; 86900; 86901; 87081; 87086; 87210; 87491; 87591; 96372; J0702; J2405; J2540; J2550; J3475

== ENCOUNTER 2016-12-23 01:54 | Outpatient (CLI) | payer SELFPAY ==
[2016-12-23 02:36] LABS: APPEARANCE,URINE CLEAR; BILIRUBIN,URINE NEGATIVE (NEGATIVE); GLUCOSE, URINE NEGATIVE (NEGATIVE); KETONES,URINE NEGATIVE (NEGATIVE); LEUKOCYTE ESTERASE,URINE NEGATIVE (NEGATIVE); NITRITE,URINE NEGATIVE (NEGATIVE); PROTEIN,URINE NEGATIVE (NEGATIVE); URINE SPECIFIC GRAVITY 1.011; UROBILINOGEN,URINE NEGATIVE mg/dL (<2.0)
[2016-12-23 02:51] LABS: URINE BARBITURATES SCREEN NEGATIVE; URINE METHADONE SCREEN NEGATIVE; URINE OPIATES LOW NEGATIVE; URINE PHENCYCLIDINE SCREEN NEGATIVE
[2016-12-23 04:17] LABS: ABSOLUTE EOSINOPHILS # (AUTO) 0.1 10^3/uL (0.0-0.6); ABSOLUTE LYMPHOCYTES (AUTO) 2.4 10^3/uL (0.5-4.7); ABSOLUTE MONOCYTES (AUTO) 0.7 10^3/uL (0.1-1.4); ABSOLUTE NEUT (AUTO) 7.2 10^3/uL (1.7-8.2); BASOPHILS % (AUTO) 0.2 % (0-2); HEMATOCRIT 30.9 % (36.0-47.0); HEMOGLOBIN 11.3 g/dL (12.0-15.5); LYMPHOCYTES % (AUTO) 23.4 % (13-45); MEAN CORPUSCULAR HEMOGLOBIN 33.4 pg (27.0-33.4); MEAN CORPUSCULAR HGB CONC 36.5 g/dL (32.0-36.0); MEAN CORPUSCULAR VOLUME 91 fl (80-97); MONOCYTES % (AUTO) 6.4 % (3-13); RED BLOOD COUNT 3.38 10^6/uL (3.72-5.28); RED CELL DISTRIBUTION WIDTH 12.9 % (11.5-14.0); WHITE BLOOD COUNT 10.4 10^3/uL (4.0-10.5)
[2016-12-23 04:27] LABS: ALANINE AMINOTRANSFERASE 22 U/L (9-52); ALBUMIN 3.2 g/dL (3.5-5.0); ALKALINE PHOSPHATASE 67 U/L (38-126); ANION GAP 7 (5-19); ASPARTATE AMINO TRANSFERASE 15 U/L (14-36); BILIRUBIN,DIRECT 0.2 mg/dL (0.0-0.4); BILIRUBIN,TOTAL 0.3 mg/dL (0.2-1.3); BLOOD UREA NITROGEN 8 mg/dL (7-20); CALCIUM 8.9 mg/dL (8.4-10.2); CARBON DIOXIDE 23 mmol/L (22-30); CHLORIDE 108 mmol/L (98-107); CREATININE RESULT 0.66 mg/dL (0.52-1.25); GLUCOSE 78 mg/dL (75-110); POTASSIUM 3.7 mmol/L (3.6-5.0); TOTAL PROTEIN 5.7 g/dL (6.3-8.2)
[2016-12-23 05:06] LABS: ADD HIVPANEL? NO; HIV (1 AND 2) ANTIBODY NEGATIVE (NEGATIVE)
--- NOTE | 2016-12-23 05:30 | Non Stress Test Report ---
Non Stress Test Datetime Report Generated by CPN: 12/23/2016 05:30 DEMOGRAPHIC EGA NST: 35.1 INDICATION Indication for Study: Ordered by Provider URINE RESULTS Urine Protein, NST: Negative Urine Ketones - NST: Negative Urine Glucose - NST: Negative Urine Blood - NST: Positive MONITORING Monitor Explained: Monitor Explained; Test Explained; Patient Verbalized Understanding Time on Monitor: 12/23/2016 02:20 Time off Monitor: 12/23/2016 05:17 NST Duration: 177 NST INTERVENTIONS NST Interventions: PO Hydration; Reposition Patient Physician Notified NST: Dr. Neilsen BABY A: [id number] BABY A Movement : Present Contraction Frequency : Occasional FHR Baseline : 125 Accelerations : 15X15 Decelerations : None Variability : Moderate 6-25bpm NST Review: Meets Criteria for Reactive NST NST Review and Verified By : Itz Ibanez RN NSRobin Results: Reactive NST REPORT Report Trigger: Send Report
[2016-12-23 05:56] LABS: CHLAM PCR NOT DETECTED (NOT DETECT)
[2016-12-24 07:38] LABS: HEPATITIS C VIRUS AB <0.1 s/co ratio (0.0-0.9)
== END 2016-12-23 05:54 | disposition home or self-care (01) ==
LOC: LC 01:54
PROVIDERS: ATTEND Specialist
PROC: 4A1HXCZ Monitoring of Products of Conception, Cardiac Rate, External Approach (ICD-10-PCS; principal; 2016-12-23)
DX: O47.03 False labor before 37 completed weeks of gestation, third trimester (principal); Z3A.35 35 weeks gestation of pregnancy
CPT/HCPCS: 36415; 59025; 80053; 80307; 81001; 85025; 86592; 86701; 86762; 86803; 86804; 86850; 86900; 86901; 87081; 87340; 87491; 87591

== ENCOUNTER 2016-12-29 15:41 | Outpatient (CLI) | payer SELFPAY ==
--- NOTE | 2016-12-29 17:06 | RADIOLOGY REPORT (SQ) ---
EXAM DESCRIPTION: U/S OB LIMITED COMPLETED DATE/TIME: 12/29/2016 4:46 pm REASON FOR STUDY: GROWTH/HARRY COMPARISON: OB ultrasound 11/23/2016, 05/29/2016 TECHNIQUE: Limited transabdominal grayscale ultrasound for evaluation of specific requested obstetri carlos a parameters. LIMITATIONS: None. FINDINGS: CERVICAL LENGTH: Not evaluated HARRY: 17.9 cm. FHR: 128 beats per minute. PRESENTATION: Cephalic. OTHER: Placenta fundal grade 2 By multiple measurements, estimated weight is 2945 g, at the 54th percentile. Estimated gestat ional age 36 weeks 1 day. IMPRESSION: LIMITED OBSTETRICAL ULTRASOUND WITH MEASURED PARAMETERS DELINEATED ABOVE. Trimester of : Third trimester - 28 weeks to delivery. TECHNICAL DOCUMENTATION: JOB ID: [id number] [employer]- All Rights Reserved
--- NOTE | 2016-12-29 17:15 | Non Stress Test Report ---
Non Stress Test Datetime Report Generated by CPN: 12/29/2016 17:15 DEMOGRAPHIC EGA NST: 36.0 INDICATION Indication for Study: Other Indication for Study (NST) Other: sent from [facility] for u/s and nst VITAL SIGNS Temperature - NST: 99.1 Pulse - NST: 77 RESP - NST: 18 NBPSYS NST: 100 NBPDIA NST: 52 MONITORING Monitor Explained: Monitor Explained; Test Explained; Patient Verbalized Understanding Time on Monitor: 12/29/2016 15:52 Time off Monitor: 12/29/2016 16:13 NST Duration: 21 NST INTERVENTIONS NST Interventions: PO Hydration Physician Notified NST: H Carlos Eduardo CNM BABY A: [id number] BABY A Movement : Present Contraction Frequency : denies FHR Baseline : 120 Accelerations : 15X15 Decelerations : None Variability : Moderate 6-25bpm NST Review: Meets Criteria for Reactive NST NST Review and Verified By : Itz Broderick RN NST Results: Reactive NST REPORT Report Trigger: Send Report
== END 2016-12-29 16:57 | disposition home or self-care (01) ==
LOC: LC 15:41
PROVIDERS: ATTEND Obstetrics & Gynecology
PROC: 4A1HXCZ Monitoring of Products of Conception, Cardiac Rate, External Approach (ICD-10-PCS; principal; 2016-12-29)
DX: Z34.93 Encounter for supervision of normal pregnancy, unspecified, third trimester (principal)
CPT/HCPCS: 59025; 76815

== ENCOUNTER 2017-01-05 14:56 | Outpatient (CLI) | payer MEDICAID ==
--- NOTE | 2017-01-05 15:20 | Non Stress Test Report ---
Non Stress Test Datetime Report Generated by CPN: 01/05/2017 15:20 DEMOGRAPHIC EGA NST: 37.0 INDICATION Indication for Study: Decreased Movement; Ordered by Provider MONITORING Monitor Explained: Monitor Explained; Test Explained; Patient Verbalized Understanding Time on Monitor: 01/05/2017 14:52 Time off Monitor: 01/05/2017 15:20 NST Duration: 28 NST INTERVENTIONS NST Interventions: PO Hydration; Reposition Patient Physician Notified NST: J. Castro, CNM BABY A: [id number] BABY A Movement : Present Contraction Frequency : intermittent FHR Baseline : 115 Accelerations : 15X15 Decelerations : None Variability : Moderate 6-25bpm NST Review: Meets Criteria for Reactive NST NST Review and Verified By : Lynn Camp RNC NST Results: Reactive NST REPORT Report Trigger: Send Report
== END 2017-01-05 15:24 | disposition home or self-care (01) ==
LOC: LC 14:56
PROVIDERS: ATTEND Student in an Organized Health Care Education/Training Program
PROC: 4A1HXCZ Monitoring of Products of Conception, Cardiac Rate, External Approach (ICD-10-PCS; principal; 2017-01-05)
DX: O36.8130 Decreased fetal movements, third trimester, not applicable or unspecified (principal); Z3A.37 37 weeks gestation of pregnancy
CPT/HCPCS: 59025

== ENCOUNTER 2017-01-31 06:33 | Inpatient (IN) | payer MEDICAID ==
[2017-01-31] MEDS ORDERED: RINGERS SOLUTION,LACTATED 1,000 ML IV PRN (06:49)
[2017-01-31] MEDS ORDERED: OXYTOCIN/NORMAL SALINE 20 UNIT/1,000 ML RTUINJ IV PRN ×2 (06:49→16:51)
[2017-01-31] MEDS ORDERED: RINGERS SOLUTION,LACTATED 300 ML IV ONE (06:49)
[2017-01-31 07:24] LABS: ABSOLUTE EOSINOPHILS # (AUTO) 0.1 10^3/uL (0.0-0.6); ABSOLUTE LYMPHOCYTES (AUTO) 2.2 10^3/uL (0.5-4.7); ABSOLUTE MONOCYTES (AUTO) 0.6 10^3/uL (0.1-1.4); ABSOLUTE NEUT (AUTO) 6.2 10^3/uL (1.7-8.2); BASOPHILS % (AUTO) 0.2 % (0-2); EOSINOPHILS % (AUTO) 1.5 % (0-6); HEMATOCRIT 30.3 % (36.0-47.0); HEMOGLOBIN 11.1 g/dL (12.0-15.5); MEAN CORPUSCULAR HEMOGLOBIN 33.6 pg (27.0-33.4); MEAN CORPUSCULAR HGB CONC 36.7 g/dL (32.0-36.0); MEAN CORPUSCULAR VOLUME 92 fl (80-97); MONOCYTES % (AUTO) 6.7 % (3-13); RED BLOOD COUNT 3.31 10^6/uL (3.72-5.28); RED CELL DISTRIBUTION WIDTH 12.9 % (11.5-14.0); SEGMENTED NEUTROPHILS % (AUTO) 67.6 % (42-78); WHITE BLOOD COUNT 9.2 10^3/uL (4.0-10.5)
[2017-01-31 07:54] LABS: APPEARANCE,URINE SLIGHTLY-CLOUDY; BILIRUBIN,URINE NEGATIVE (NEGATIVE); GLUCOSE, URINE NEGATIVE (NEGATIVE); KETONES,URINE NEGATIVE (NEGATIVE); LEUKOCYTE ESTERASE,URINE LARGE (NEGATIVE); NITRITE,URINE NEGATIVE (NEGATIVE); PROTEIN,URINE NEGATIVE (NEGATIVE); URINE SPECIFIC GRAVITY 1.011; UROBILINOGEN,URINE NEGATIVE mg/dL (<2.0)
[2017-01-31] MEDS ORDERED: OXYTOCIN/NORMAL SALINE 0 UNIT/0 ML RTUINJ ONE (08:01)
[2017-01-31 08:09] LABS: URINE BARBITURATES SCREEN NEGATIVE; URINE METHADONE SCREEN NEGATIVE; URINE OPIATES LOW NEGATIVE; URINE PHENCYCLIDINE SCREEN NEGATIVE
[2017-01-31] MEDS ORDERED: LIDOCAINE 1% INJ-PF (10 MG/ML) 30 ML SDV ONE (08:17)
[2017-01-31] MEDS ORDERED: MISOPROSTOL 0.2 MG TABLET ONE (08:17)
[2017-01-31] MEDS ORDERED: OXYTOCIN/NORMAL SALINE 20 UNIT/1,000 ML RTUINJ ONE ×2 (08:17→17:06)
[2017-01-31] MEDS ORDERED: PROMETHAZINE HCL INJ 25 MG/1 ML VIAL ONE (14:24)
[2017-01-31] MEDS ORDERED: NALBUPHINE HCL INJ 10 MG/1 ML AMPULE ONE (14:24)
[2017-01-31] MEDS ORDERED: PROMETHAZINE HCL INJ 25 MG/1 ML VIAL IV ONE (14:27)
[2017-01-31] MEDS ORDERED: NALBUPHINE HCL INJ 10 MG/1 ML AMPULE INJ ONE (14:27)
[2017-01-31] MEDS ORDERED: MEASLES,MUMPS&RUBELLA VACC/PF 0.5 ML VIAL SUBCUT PRN (16:51)
[2017-01-31] MEDS ORDERED: ZOLPIDEM TARTRATE 5 MG TABLET PO PRN (16:51)
[2017-01-31] MEDS ORDERED: ACETAMINOPHEN WITH CODEINE #3 TABLET PO PRN (16:51)
[2017-01-31] MEDS ORDERED: DIPH/PERTUSS(ACELL)/TETANUS VAC/PF 0.5 ML SYR (>=10YO) IM PRN (16:51)
[2017-01-31] MEDS ORDERED: DIBUCAINE 1% OINTMENT 28 GM TP PRN (16:51)
[2017-01-31] MEDS ORDERED: BENZOCAINE/MENTHOL AEROSOL SPRAY 56 ML TOP PRN (16:51)
[2017-01-31] MEDS ORDERED: METHYLERGONOVINE MALEATE INJ/PF 0.2 MG/1 ML AMPULE ONE (17:17)
[2017-01-31] MEDS ORDERED: METHYLERGONOVINE MALEATE INJ/PF 0.2 MG/1 ML AMPULE IM ONE (17:24)
--- NOTE | 2017-01-31 17:58 | Delivery Summary ---
Del Sum A-C Datetime Report Generated by CPN: 01/31/2017 17:58 DELIVERY PERSONNEL DELIVERY PERSONNEL: [id number] Delivery Doctor:: Jeri Thibodeaux CNM Labor and Delivery Nurse:: Josh Crowley RNgauger chief Nurse:: RAMY Valdez Nursery Nurse:: Valeria James RN Scene Shifter/JELLY FILTER TENDER: Milvia Garsia CNA II Scene Shifter/JELLY FILTER TENDER: Lela Beasley, ANESTHESIOLOGIST PHYSICIAN MATERNAL INFORMATION Delivery Anesthesia: None Medications After Delivery: Pitocin Bolus-Please Comment; Pitocin Drip 20 Units/1000ml NSS; Other-Please Comment Meds After Delivery Comment: Cytotec 1000 mg DC Estimated Blood Loss (ml): 350 Maternal Complications: None Provider Comments: of of viable female infant, head delivered without difficulty, shoulders and body followed with gentle traction, infant with spontaneous cry and respirations to maternal abdomen, cord clamped X2 cut free, after 2 min delay, spontaneous delivery of placenta via begum, appears intact, 3 VC, vagina and perineum inspected, lacerations repaired as above, 1000 mcg rectal cytotec given for boggie lower uterine segment, better with cytotec and massage and IV pitocin, good hemostasis acheived. Routine pp care, mother and in stable condition. LABOR SUMMARY EDC: 01/26/2017 00:00 No. Babies in Womb: 1 Attempted: No Labor Anesthesia: IV Sedation LABOR INFORMATION Reason for Induction: Post Dates Onset of Labor: 01/31/2017 08:40 Complete Dilatation: 01/31/2017 15:52 Oxytocin: Induction Group B Beta Strep: Negative Antibiotics # of Doses: 0 Steroids Given: Full Course Reason Steroids Not Administered: Indication MEMBRANES Membranes Rupture Method: Artificial Rupture of Membranes: 01/31/2017 13:51 Length of Rupture (hr): 2.30 Amniotic Fluid Color: Clear Amniotic Fluid Amount: Moderate Amniotic Fluid Odor: Normal STAGES OF LABOR Stage 1 hr: 7 Stage 1 min: 12 Stage 2 hr: 0 Stage 2 min: 17 Stage 3 hr: 0 Stage 3 min: 2 Total Time in Labor hr: 7 Total Time in Labor min: 31 VAGINAL DELIVERY Episiotomy: None Laceration #1: Periurethral Laceration Extension #1: First Degree Laceration #2: Perineal Laceration Extension #2: First Degree Laceration Repair: Yes Laceration Repair Note: #1 repaired with 3-0 chromic with 2 single sutures #2 repaired with 3-0 chromic in usual fashion lidocaine used Sponge Count Correct: Yes Sharps Count Correct: Yes CSECTION DELIVERY Primary Indication: N/A Secondary Indication: N/A CSection Incidence: N/A Labor: N/A Elective: N/A CSection Incision: N/A BABY A INFORMATION Delivery Date/Time: 01/31/2017 16:09 Method of Delivery: Vaginal Born in Route : No : N/A Forceps: N/A Vacuum Extraction: N/A Shoulder Dystocia : No PRESENTATION/POSITION BABY A Presentation: Cephalic Cephalic Presentation: Vertex Vertex Position: Right Occipital Anterior Breech Presentation: N/A PLACENTA INFORMATION BABY A Placenta Delivery Time : 01/31/2017 16:11 Placenta Method of Delivery: Spontaneous Placenta Status: Delivered SCORES BABY A Heart Rate 1 min: >100 bpm Resp Effort 1 min: Good Cry Reflex Irritability 1 min: Cough or Sneeze or Pulls Away Muscle Tone 1 min: Active Motion Color 1 min: Body Avery, Extremities Blue Resuscitation Effort 1 min: Tactile Stimulation SCORE 1 MIN: 9 Heart Rate 5 min: >100 bpm Resp Effort 5 min: Good Cry Reflex Irritability 5 min: Cough or Sneeze or Pulls Away Muscle Tone 5 min: Active Motion Color 5 min: Body Avery, Extremities Blue Resuscitation Effort 5 min: N/A SCORE 5 MIN: 9 INFORMATION BABY A Gestational Age at Delivery: 40.5 Gestational Status: Full Term- 39- 40.6 Weeks Infant Outcome : Liveborn Condition : Stable Sex: Female IDENTIFICATION BABY A Verification Date/Time: 01/31/2017 16:35 ID Band Number: [id number] Mother's Name Verified: Yes RN Verifying : C Crowley RN Additional Verifying Personnel: S Camp RNC WEIGHT/LENGTH BABY A Infant Birthweight (gm): 3940 Infant Weight (lb): 8 Infant Weight (oz): 11 Length (in): 20.25 Infant Length (cm): 51.44 CORD INFORMATION BABY A No. Cord Vessels: 3 Nuchal Cord : N/A Cord Blood Taken: Yes-For Storage (Mom's Blood type +) Infant Suction: None ASSESSMENT BABY A Complications: None Physical Findings at Delivery: Molding of the Head Respirations: Appears Normal Skin to Skin: Yes Skin to Skin Time (min): 45 Diesel Engineer/ALS Called : No Care By: Serjio James RN Transferred To: Remains with Mother BABY B INFORMATION : N/A SIGNATURES Assignment: Adriana Calix MD Signature: with User ID: [email or web address]
--- NOTE | 2017-01-31 20:36 | Admission Physical ---
Datetime Report Generated by CPN: 01/31/2017 20:36 CURRENT ADMISSION Hx Assessment: The History has been Reviewed and is Current Hx Assessment: The History has been Reviewed and is Current Chief Complaint: Scheduled Induction of Labor Chief Complaint: Uterine Contractions Indication for Induction: Post Dates Indication for Induction: Term, Intrauterine ; No Active Labor; Intact Membranes; Induction of Labor Indication for Induction: , Intrauterine Admit Plan: Admit to Unit; Initiate Labor Induction Protocol Admit Plan: Initiate Labor Protocol ALLERGIES Medication Allergies: Yes Medication Allergies: clindamycin/SV/Hives (01/31/2017) Medication Allergies: clindamycin/SV/Hives (12/29/2016) Medication Allergies: clindamycin/SV/Hives (12/23/2016) Medication Allergies: clindamycin/CO/Hives (11/23/2016) Medication Allergies: clindamycin/CO/Hives (09/14/2016) Medication Allergies: clindamycin/CO/Hives (06/17/2016) Latex: No Latex Allergies Food Allergies: none Environmental Allergies: none OBSTETRICAL HISTORY EDC: 01/26/2017 00:00 : 5 Para: 2 Term: 2 : 0 SAB: 2 IAB: 0 Ectopic: 1 Livin Cesareans: 0 VBACs: 0 Multiple Births: 0 Gestational Diabetes: No Rh Sensitization: No Incompetent Cervix: No HENRRY: No Infertility: No ART Treatment: No Uterine Anomaly: No IUGR: No Hx Previous C/S: No Macrosomia: No Hx Loss/Stillborn: No PIH: No Hx : No Placenta Previa/Abruption: No Depression/PP Depression: No PTL/PROM: No Post Hemorrhage: No Current Procedures: Ultrasound; NST Obstetrical History Comments: [id number] @ 41wks male 11lbs 7oz G2-2005 ruptured ectopic with left tube removal G3-2008 @ 39wks female 7lbs 13oz G4-2014 miscarriage G5- current SEE RECORDS Alcohol: No Marijuana : No Cocaine: No Other Illicit Drugs: No Cigarettes: Current Everyday Smoker. 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 Heart Disease: No Hosp/Surgery: Yes Autoimmune Disorder: No Anesthetic Complications: No Kidney Disease: No Abnormal Pap Smear: No Neuro/Epilepsy: No Psychiatric Disorders: Yes Other Medical Diseases: No Hepatitis/Liver Disease: No Significant Family History: No Varicosities/Phlebitis: Yes Trauma/Violence : No Thyroid Dysfunction: No Medical History Comments: Blood clot in Leg during this , ectopic with salpingo-oophorectomy 2005, bilateral wrist surgeries for cyst removal as teen, anxiety, depression-on meds prior to INFECTIOUS HISTORY Gonorrhea: No Genital Herpes: Yes Chlamydia: No Tuberculosis: No Syphilis: No Hepatitis: No HIV/AIDS Exposure: No Rash or Viral Illness: No HPV: No Infectious History Comments: +HSV-on Valtrex; PHYSICAL EXAM General: Normal General: Normal HEENT: Normal HEENT: Normal Neurologic: Normal Neurologic: Normal Thyroid: Deferred Thyroid: Normal Heart: Normal Heart: Normal Lungs: Normal Lungs: Normal Breast: Normal Breast: Normal Back: Normal Back: Normal Abdomen: Normal Abdomen: Normal Genitourinary Exam: Normal Genitourinary Exam: Normal Extremities: Normal Extremities: Normal DTRs: Normal DTRs: Normal Pelvic Type: Adequate Pelvic Type: Adequate Physical Exam Comments: pelvis proven 11lbs 7 oz Physical Exam Comments: no hsv lesions seen-pt on prophylaxis Vital Signs: Reviewed VAGINAL EXAM Dilatation: 4 Dilatation: 2 Dilatation: 2 Effacement: 50 Effacement: 50 Effacement: 50 Station: -1 Station: -1 Station: -2 Contraction Comments: rare Contraction Comments: q1-5 min MEMBRANES Membranes: Intact FETUS A EGA: 31.0 EGA: 30.6 Monitoring: External US FHR- Baseline: 125 Accelerations: 15X15 Decelerations: None FHR Category: Category I FHR Category: Category I Estimated Weight (gm): 4000 Presentation: Vertex Admit Comment: care at [facility], hx macrosomia no dystocia hsv on valtrex, no lesions, no prodromal symptoms. hx superficial thrombophlebitis smoker ctx this bmz and mag sulfate, dc home admit pitocin gbs neg Admit Comment: IUP at 30.6 wks with ptl steroids for lung maturity, magnesisum neuroprophylaxis and tocolysis, gbs, prophylaxis, cont valtrex, check ob sono if makes further cervical change, plan transfer to higher level nicu PLANS FOR LABOR AND DELIVERY Labor and Delivery: None Pain Management: None Feeding Preference: Breast Benefit of Breast Feed Discussed: Yes Circumcision: N/A INFORMED CONSENT Informed Consent Obtained: Risks, Benefits and Alternatives Discussed Assignment: Adriana Calix MD Signature: with User ID: [email or web address] Signature: with User ID: [email or web address] : with User ID: [email or web address] : with User ID: [email or web address]
[2017-01-31] MEDS: DOCUSATE SODIUM 100 MG CAPSULE PO SCH (21:04)
[2017-01-31] MEDS: FERROUS SULFATE 325 MG TABLET PO SCH (21:04)
[2017-01-31] MEDS: IBUPROFEN 800 MG TABLET PO SCH (21:05)
[2017-02-01] MEDS: IBUPROFEN 800 MG TABLET PO SCH ×3 (05:18→21:11)
[2017-02-01 08:00] LABS: HEMOGLOBIN 9.2 g/dL (12.0-15.5); HGB HCT DIFFERENCE 2.6; MEAN CORPUSCULAR HEMOGLOBIN 33.7 pg (27.0-33.4); MEAN CORPUSCULAR HGB CONC 36.7 g/dL (32.0-36.0); MEAN CORPUSCULAR VOLUME 92 fl (80-97); RED BLOOD COUNT 2.72 10^6/uL (3.72-5.28); WHITE BLOOD COUNT 15.4 10^3/uL (4.0-10.5)
[2017-02-01] MEDS: DOCUSATE SODIUM 100 MG CAPSULE PO SCH ×2 (09:40→17:34)
[2017-02-01] MEDS: FERROUS SULFATE 325 MG TABLET PO SCH ×2 (09:40→17:35)
[2017-02-01] MEDS: PRENATAL VITAMIN W-O CA NO5/FE FUMARATE/FA CAPSULE PO SCH (09:40)
[2017-02-01] MEDS: ASPIRIN 81 MG TABLET, CHEWABLE PO SCH (09:41)
[2017-02-01] MEDS: SENNOSIDES/DOCUSATE 8.6-50 MG 1 EACH TABLET PO SCH (09:41)
--- NOTE | 2017-02-01 10:30 | PDOC PROGRESS REPORT ---
Subjective-OB Subjective: Post Delivery Day: 36 year old. Denies any needs at this time. Pt doing well, reports regular diet, voiding without difficulty, bleeding is light. Physical Exam (OB) Vital Signs: Temp Pulse Resp BP Pulse Ox 98.2 F 80 16 114/61 99 02/01/17 07:54 02/01/17 07:54 02/01/17 07:54 02/01/17 07:54 02/01/17 07:54 Intake & Output 01/31/17 02/01/17 02/02/17 06:59 06:59 06:59 Weight 71.75 kg - Lochia Lochia Amount: Small 10-25 ml Lochia Color: Rubra/Red - Abdomen Description: Soft, Round Hernia Present: No Fundal Description: Firm, Midline Fundal Height: u/u - u/2 Objective-Diagnostic Laboratory: 02/01/17 07:10 02/01/17 07:10 WBC 15.4 H RBC 2.72 L Hgb 9.2 L Hct 25.0 L MCV 92 MCH 33.7 H MCHC 36.7 H RDW 13.0 Plt Count 212 Assessment and Plan(PN) - Assessment and Plan (1) Vaginal delivery Is this a current diagnosis for this admission?: Yes (2) uterine contractions Is this a current diagnosis for this admission?: No - Time Spent with Patient Time with patient: Less than 15 minutes Medications reviewed and adjusted accordingly: Yes - Disposition Anticipated Discharge: Home Within: within 24 hours
[2017-02-01] MEDS: ACETAMINOPHEN WITH CODEINE #3 TABLET PO PRN (20:11)
[2017-02-02] MEDS: ACETAMINOPHEN WITH CODEINE #3 TABLET PO PRN (03:16)
[2017-02-02] MEDS: IBUPROFEN 800 MG TABLET PO SCH (06:03)
[2017-02-02 08:49] VITALS: BP 106/61
[2017-02-02] MEDS: ASPIRIN 81 MG TABLET, CHEWABLE PO SCH (09:23)
[2017-02-02] MEDS: DOCUSATE SODIUM 100 MG CAPSULE PO SCH (09:23)
[2017-02-02] MEDS: PRENATAL VITAMIN W-O CA NO5/FE FUMARATE/FA CAPSULE PO SCH (09:23)
[2017-02-02] MEDS: FERROUS SULFATE 325 MG TABLET PO SCH (09:24)
[2017-02-02] MEDS: SENNOSIDES/DOCUSATE 8.6-50 MG 1 EACH TABLET PO SCH (09:24)
[2017-02-02 12:34] LABS: HEMATOCRIT 21.7 % (36.0-47.0); HGB HCT DIFFERENCE 1.7; MEAN CORPUSCULAR HEMOGLOBIN 33.6 pg (27.0-33.4); MEAN CORPUSCULAR HGB CONC 36.2 g/dL (32.0-36.0); MEAN CORPUSCULAR VOLUME 93 fl (80-97); RED BLOOD COUNT 2.34 10^6/uL (3.72-5.28); RED CELL DISTRIBUTION WIDTH 13.1 % (11.5-14.0); WHITE BLOOD COUNT 11.7 10^3/uL (4.0-10.5)
[2017-02-02 12:36] LABS: HEMOGLOBIN 7.8 g/dL (12.0-15.5)
[2017-02-02] MEDS ORDERED: MEDROXYPROGESTERONE ACET INJ 150 MG/1 ML VIAL IM ONE (14:00)
--- NOTE | 2017-02-05 16:14 | PDOC DISCHARGE SUMMARY ---
Final Diagnosis Discharge Date: 02/02/17 Discharge Data - Discharge Medication Home Medications: Vit Calc,Iron,Folic [ Vitamins] 1 each PO DAILY 06/08/16 Aspirin [Aspirin 81 mg Chewable Tablet] 1 tab PO DAILY 11/23/16 Acyclovir [Acyclovir 400 mg Tablet] 1 tab PO BID 12/29/16 Docusate Sodium [Colace 100 mg Capsule] 100 mg PO BID #60 capsule 02/02/17 Ferrous Sulfate [Feosol 325 mg Tablet] 325 mg PO BID #60 tablet 02/02/17 Ibuprofen [Motrin 800 mg Tablet] 800 mg PO Q8HP PRN #30 tablet 02/02/17 Reason(s) for Admission: Onset of Labor Procedures: Ultrasound Intrapartum Procedure(s): Spontaneous Vaginal Delivery Complication(s): Laceration-Perineal, Laceration-Periurethral Laceration-Degree: 1st - Diagnosis Test Laboratory: Temp Pulse Resp BP Pulse Ox 98.4 F 75 18 106/61 100 02/02/17 08:13 02/02/17 08:13 02/02/17 08:13 02/02/17 08:13 02/02/17 08:13 01/31/17 01/31/17 02/01/17 07:01 07:23 07:10 RBC 3.31 L 2.72 L Hgb 11.1 L 9.2 L Hct 30.3 L 25.0 L Urine Opiates Screen NEGATIVE - Discharge information/Instructions Discharge Activity: Activity As Tolerated, Balance Activity w/Rest, No Lifting Over 10 Pounds, Pelvic Rest, No tub bath Discharge Diet: As Tolerated, Regular Disposition: HOME, SELF-CARE Follow up with: [facility] in: 4, Weeks
== END 2017-02-02 16:21 | disposition home or self-care (01) | DRG 774 ==
LOC: LR 06:33 → 2S 20:31
PROVIDERS: ADMIT Obstetrics & Gynecology; ATTEND Obstetrics & Gynecology
PROC: 10E0XZZ Delivery of Products of Conception, External Approach (ICD-10-PCS; principal; 2017-01-31)
PROC: 0HQ9XZZ Repair Perineum Skin, External Approach (ICD-10-PCS; 2017-01-31)
PROC: 0UQMXZZ Repair Vulva, External Approach (ICD-10-PCS; 2017-01-31)
PROC: 3E0P3VZ Introduction of Hormone into Female Reproductive, Percutaneous Approach (ICD-10-PCS; 2017-01-31)
PROC: 10907ZC Drainage of Amniotic Fluid, Therapeutic from Products of Conception, Via Natural or Artificial Opening (ICD-10-PCS; 2017-01-31)
PROC: 4A1HXCZ Monitoring of Products of Conception, Cardiac Rate, External Approach (ICD-10-PCS; 2017-01-31)
DX: O48.0 Post-term pregnancy (principal); O98.32 Other infections with a predominantly sexual mode of transmission complicating childbirth; O70.0 First degree perineal laceration during delivery; O71.82 Other specified trauma to perineum and vulva; O99.334 Smoking (tobacco) complicating childbirth; F17.210 Nicotine dependence, cigarettes, uncomplicated; A60.04 Herpesviral vulvovaginitis; Z79.899 Other long term (current) drug therapy; Z28.21 Immunization not carried out because of patient refusal; Z88.3 Allergy status to other anti-infective agents; Z3A.40 40 weeks gestation of pregnancy; Z37.0 Single live birth
CPT/HCPCS: 36415; 80307; 81005; 85025; 85027; 86592; 86850; 86900; 86901; 90715; 94760; J1050; J2210; J2300; J2550; J2590; J3490

== ENCOUNTER 2017-07-17 17:18 | Emergency (ER) | payer SELFPAY ==
[2017-07-17] MEDS ORDERED: PENICILLIN V POTASSIUM 500 MG TABLET PO ONE (18:28)
--- NOTE | 2017-07-17 18:33 | ER Document Report ---
HPI - HPI Patient complains to provider of: Dental pain Onset: Yesterday Onset/Duration: Gradual Quality of pain: Achy Pain Level: 4 Context: She presents complaining of right lower dental pain that started yesterday. Patient without any fever or facial swelling. Associated Symptoms: Other - Dental pain. 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 Denies: Hx Peritoneal Dialysis Psychiatric Medical History: Reports: Hx Anxiety Past Surgical History: Reports: Hx Gynecologic Surgery - Left ectopic removal, Hx Orthopedic Surgery - Immunizations Hx Diphtheria, Pertussis, Tetanus Vaccination: No Vertical Provider Document - CONSTITUTIONAL Agree With Documented VS: Yes Exam Limitations: No Limitations General Appearance: WD/WN, No Apparent Distress - INFECTION CONTROL TRAVEL OUTSIDE OF THE [place] IN LAST 30 DAYS: No - HEENT HEENT: Atraumatic, Normocephalic. negative: Pharyngeal Exudate, Pharyngeal Tenderness, Pharyngeal Erythema, Tympanic Membrane Red, Tympanic Membrane Bulging Mouth Diagram: 1 - tenderness, dental decay, fracture, gingival induration, no fluctuance, no trismus, no potential airway compromise. No sublingual or submental swelling - NECK Neck: Normal Inspection, Supple - RESPIRATORY Respiratory: Breath Sounds Normal, No Respiratory Distress - CARDIOVASCULAR Cardiovascular: Regular Rate, Regular Rhythm - BACK Back: Normal Inspection - MUSCULOSKELETAL/EXTREMETIES Musculoskeletal/Extremeties: MAEW - NEURO Level of Consciousness: Awake, Alert, Appropriate Motor/Sensory: No Motor Deficit - DERM Integumentary: Warm, Dry Course - Re-evaluation Re-evalutation: 07/17/17 18:30 Controlled substance database reviewed - Vital Signs Vital signs: Temp Pulse Resp BP Pulse Ox 98.9 F 68 16 122/67 100 07/17/17 17:37 07/17/17 17:37 07/17/17 17:37 07/17/17 17:37 07/17/17 17:37 Discharge - Discharge Clinical Impression: Infected dental caries Condition: Stable Disposition: HOME, SELF-CARE Instructions: Penicillin V K ([facility]), Toothache ([facility]), Ultram ([facility]) Additional Instructions: Return immediately for any new or worsening symptoms Followup with your primary care provider, call tomorrow to make a followup appointment Follow-up with a dental care provider Prescriptions: Penicillin V Potassium [Penicillin Vk 500 mg Tablet] 500 mg PO BID #20 tablet Tramadol HCl [Ultram 50 mg Tablet] 50 mg PO ASDIR PRN #14 tablet PRN Reason: Forms: Smoking Cessation Education, Return to Work Referrals: [facility] [Provider Group] - Follow up as needed
[2017-07-17 18:50] VITALS: BP 123/73
== END 2017-07-17 18:50 | disposition home or self-care (01) ==
LOC: ER 17:18
DX: K02.9 Dental caries, unspecified (principal); K04.7 Periapical abscess without sinus; F17.200 Nicotine dependence, unspecified, uncomplicated
CPT/HCPCS: 99282

== ENCOUNTER 2018-01-09 03:36 | Emergency (ER) | payer SELFPAY ==
[2018-01-09 03:46] VITALS: BP 129/72
[2018-01-09] MEDS ORDERED: FLUCONAZOLE 100 MG TABLET PO ONE (04:09)
[2018-01-09] MEDS ORDERED: PREDNISONE 20 MG TABLET PO ONE (04:10)
[2018-01-09] MEDS ORDERED: KETOROLAC TROMETHAMINE INJ/PF 30 MG/1 ML SDV IM ONE (04:10)
--- NOTE | 2018-01-09 04:17 | ER Document Report ---
ED General - General Chief Complaint: Wrist Pain Stated Complaint: WRIST PAIN Time Seen by Provider: 01/09/18 03:54 Notes: Patient is a 37-year-old female presents with pain that is over the right hyperthenar eminence. Says started yesterday became worse over the last 36 hours and was much worse tonight while at work. 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 She does have a previous history of surgery over her right wrist from a previous ganglion cyst. She says the pain seems to radiate from the area. No traumas or injuries. She has not fallen onto her hand or wrist. Patient second complaint is that she has tinea versicolor rash of her upper chest. She says it started when she was . She had a child and then was breast-feeding therefore still cannot take medication for this. She is now done breast- feeding is requesting if there is any treatment for this. Rash is not painful. No other complaints at this time. TRAVEL OUTSIDE OF THE [place] IN LAST 30 DAYS: No - Related Data Allergies/Adverse Reactions: clindamycin Allergy (Severe, Verified 07/17/17 17:20) Hives Past Medical History - Social History Smoking Status: Unknown if Ever Smoked Frequency of alcohol use: None Drug Abuse: None Family History: Reviewed & Not Pertinent Renal/ Medical History: Reports: Hx Ectopic , Hx Ovarian Cysts. Denies: Hx Peritoneal Dialysis Psychiatric Medical History: Reports: Hx Anxiety Past Surgical History: Reports: Hx Gynecologic Surgery - Left ectopic removal, Hx Orthopedic Surgery - Immunizations Hx Diphtheria, Pertussis, Tetanus Vaccination: No Review of Systems - Review of Systems Notes: My Normal Review Basic REVIEW OF SYSTEMS: CONSTITUTIONAL : Denies fever, chills, or sweats. Denies recent illness. Well-appearing MUSCULOSKELETAL: Pain over right wrist and right hypothenar eminence. SKIN: Chronic tinea versicolor rash of her upper chest. NEUROLOGICAL: Denies sensory or motor loss. ALL OTHER SYSTEMS REVIEWED AND NEGATIVE. Physical Exam - Vital signs Vitals: Temp Pulse Resp BP Pulse Ox 98.7 F 70 18 129/72 H 100 01/09/18 03:44 01/09/18 03:44 01/09/18 03:44 01/09/18 03:44 01/09/18 03:44 - Notes Notes: General Appearance: Well nourished, alert, cooperative, no acute distress, no obvious discomfort. Well-appearing. Vitals: reviewed, See vital signs table. Extremities: Patient does have pain and stretching into the right hyperthenar eminence and wrist when she makes a fist around her thumb and then shifts her hand ulnarly. She has no redness or swelling to the region. No evidence of recurring ganglion cyst. Pulses are intact. Distal capillary refill is intact. Good strength in the hand. Skin: Rash of her upper torso consistent with tinea versicolor. Neuro: speech clear, oriented x 3, normal affect, responds appropriately to questions. Course - Re-evaluation Re-evalutation: 01/09/18 05:28 Patient is exam is consistent with a de Quervain's tendinitis. We will place her on prednisone. I gave her a shot of Toradol. I will give her a cock-up splint. I informed her she still having pain after several days and she should follow-up with the orthopedist. I will refer her to Dr. Connors. Patient's rash is consistent with that of tinea versicolor. I will give her a dose of Diflucan. I encouraged her to use selenium sulfide shampoo. Encouraged to return to ER if she has any spreading redness or swelling, worsening of the rash , she has increasing pain in her thigh and her thumb, swelling, she has any further concerns. Patient to follow-up with Dr. Connors if she continues to have pain despite treatment. Patient agrees with plan will be discharged home. Patient given cockup wrist splint to wear. Dictation of this chart was performed using voice recognition software; therefore, there may be some unintended grammatical errors. - Vital Signs Vital signs: Temp Pulse Resp BP Pulse Ox 98.7 F 70 18 129/72 H 100 01/09/18 03:44 01/09/18 03:44 01/09/18 03:44 01/09/18 03:44 01/09/18 03:44 Discharge - Discharge Clinical Impression: Tenosynovitis, de Quervain, Tinea versicolor Condition: Good Disposition: HOME, SELF-CARE Additional Instructions: Please by Selenium sulfide shampoo such as Selsum Blue. wash with the shampoos over the affected rash daily in the shower. Please carlos a the orthopedist office on Sunday to make an appointment for the following weak if you are still having pain in your hand. Please return to the Er immediately if you develop redness or swelling to your hand or feel unwell. Prescriptions: Prednisone 30 mg PO DAILY #12 tablet Referrals: SEN CONNORS DO [ACTIVE STAFF] - 01/14/18
== END 2018-01-09 04:33 | disposition home or self-care (01) ==
LOC: ER 03:36
DX: M65.4 Radial styloid tenosynovitis [de Quervain] (principal); B36.0 Pityriasis versicolor; Z88.1 Allergy status to other antibiotic agents; Z98.890 Other specified postprocedural states
CPT/HCPCS: 99283; 96372; L3908; J1885; J7512

== ENCOUNTER 2018-08-12 20:54 | Emergency (ER) | payer SELFPAY ==
--- NOTE | 2018-08-12 21:23 | ER Document Report ---
ED Medical Screen (RME) - General Chief Complaint: Leg Swelling Stated Complaint: RIGHT LEG PAIN AND SWELLING Time Seen by Provider: 08/12/18 21:22 Primary Care Provider: YUMIKO GARCIA JR, MD [Primary Care Provider] - Follow up as needed Mode of Arrival: Ambulatory Information source: Patient TRAVEL OUTSIDE OF THE [place] IN LAST 30 DAYS: No - HPI Notes: 08/12/18 21:25 Patient is a 37-year-old female who presents to the emergency department for a 3-day history of pain behind her right knee. Patient reports that she was diagnosed with a "superficial blood clot in her right calf " in 2017 when she was . Patient states they had her aspirin as soon as she delivered they took her off the medicine and since she did not need it anymore. Patient reports that the pain is "really sore," and although there is no redness she reports noticing some swelling and states it feels similar to her previous clot. Last travel was 1 month ago when she flew. Patient denies any past medical history. Patient is a smoker and reports smoking 1 pack a day and does stand on her feet all day for work. Patient denies numbness or tingling to her right lower extremity. Denies recent injury to the right leg. She denies chest pain or shortness of breath. Denies current use of control. - Related Data Smoking: Cigarettes, Greater than 1 pack/day Allergies/Adverse Reactions: clindamycin Allergy (Severe, Verified 07/17/17 17:20) Hives Past Medical History - General Information source: Patient - Social History Cigarette use (# per day): Yes Chew tobacco use (# tins/day): Yes Lives with: Family - Past Medical History Cardiac Medical History: Reports: Hx DVT Pulmonary Medical History: Reports: None EENT Medical History: Reports: None Neurological Medical History: Reports: None Endocrine Medical History: Reports: None Renal/ Medical History: Reports: Hx Ectopic , Hx Ovarian Cysts. Denies: Hx Peritoneal Dialysis Malignancy Medical History: Reports: None GI Medical History: Reports: None Musculoskeltal Medical History: Reports None Skin Medical History: Reports None Psychiatric Medical History: Reports: Hx Anxiety Traumatic Medical History: Reports: None Infectious Medical History: Reports: None Surgical Hx: Negative Past Surgical History: Reports: Hx Gynecologic Surgery - Left ectopic removal, Hx Orthopedic Surgery - Immunizations Hx Diphtheria, Pertussis, Tetanus Vaccination: No History of Influenza Vaccine for 01/2017 - 06/2017 Season: No Review of Systems - Review of Systems Constitutional: No symptoms reported EENT: No symptoms reported Cardiovascular: No symptoms reported Respiratory: No symptoms reported Gastrointestinal: No symptoms reported Genitourinary: No symptoms reported Female Genitourinary: No symptoms reported Musculoskeletal: See HPI Skin: See HPI Hematologic/Lymphatic: No symptoms reported Neurological/Psychological: No symptoms reported Physical Exam - Vital signs Vitals: Temp Pulse Resp BP Pulse Ox 98.1 F 67 16 121/65 100 08/12/18 21:01 08/12/18 21:01 08/12/18 21:01 08/12/18 21:01 08/12/18 21:01 - Respiratory Respiratory status: No respiratory distress Breath sounds: Normal Chest palpation: Normal - Cardiovascular Rhythm: Regular Heart sounds: Normal auscultation, S1 appreciated, S2 appreciated - Extremities Thigh: Normal Knee: Normal, Tender - Tenderness with palpation behind right knee, no erythema, no edema. Calf: Normal Course - Re-evaluation Re-evalutation: 08/12/18 21:31 I have greeted and performed a rapid initial assessment of this patient. A comprehensive ED assessment and evaluation of the patient, analysis of test results and completion of the medical decision making process will be conducted by additional ED providers. - Vital Signs Vital signs: Temp Pulse Resp BP Pulse Ox 98.1 F 67 16 121/65 100 08/12/18 21:01 08/12/18 21:01 08/12/18 21:01 08/12/18 21:01 08/12/18 21:01 Doctor's Discharge - Discharge Referrals: YUMIKO GARCIA JR, MD [Primary Care Provider] - Follow up as needed
--- NOTE | 2018-08-13 01:02 | ER Document Report ---
ED General - General Chief Complaint: Leg Swelling Stated Complaint: RIGHT LEG PAIN AND SWELLING Time Seen by Provider: 08/12/18 21:22 Primary Care Provider: YUMIKO GARCIA JR, MD [NO LOCAL MD] - Follow up in 3-5 days Mode of Arrival: Ambulatory Notes: Patient is a 37-year-old female presents with complaint of a pain in the right leg just below the right knee. Says started within last 24 hours. She states that since that is worse with movement. She does not remember any actual injury. She does have a history of an SVT she is . She took aspirin for this and improved. She is never had a DVT. No swelling or edema legs. No fevers. No other complaints at this time. TRAVEL OUTSIDE OF THE [place] IN LAST 30 DAYS: No - Related Data Allergies/Adverse Reactions: clindamycin Allergy (Severe, Verified 07/17/17 17:20) Hives Past Medical History - General Information source: Patient - Social History Smoking Status: Current Every Day Smoker Cigarette use (# per day): Yes Chew tobacco use (# tins/day): Yes Frequency of alcohol use: None Drug Abuse: None Lives with: Family Family History: Reviewed & Not Pertinent Patient has suicidal ideation: No Patient has homicidal ideation: No - Past Medical History Cardiac Medical History: Reports: Hx DVT Pulmonary Medical History: Reports: None EENT Medical History: Reports: None Neurological Medical History: Reports: None Endocrine Medical History: Reports: None Renal/ Medical History: Reports: Hx Ectopic , Hx Ovarian Cysts. Denies: Hx Peritoneal Dialysis Malignancy Medical History: Reports: None GI Medical History: Reports: None Musculoskeletal Medical History: Reports None Skin Medical History: Reports None Psychiatric Medical History: Reports: Hx Anxiety Traumatic Medical History: Reports: None Infectious Medical History: Reports: None Surgical Hx: Negative Past Surgical History: Reports: Hx Gynecologic Surgery - Left ectopic removal, Hx Orthopedic Surgery - Immunizations Hx Diphtheria, Pertussis, Tetanus Vaccination: No Review of Systems - Review of Systems Notes: My Normal Review Basic REVIEW OF SYSTEMS: CONSTITUTIONAL : Denies fever, chills, or sweats. Denies recent illness. CARDIOVASCULAR: Denies chest pain. RESPIRATORY: Denies cough, cold, or chest congestion. Denies shortness of breath, difficulty breathing, or wheezing. MUSCULOSKELETAL: Pain behind right knee SKIN: Denies rash or skin lesions. NEUROLOGICAL: Denies sensory or motor loss. ALL OTHER SYSTEMS REVIEWED AND NEGATIVE. Physical Exam - Vital signs Vitals: Temp Pulse Resp BP Pulse Ox 98.1 F 67 16 121/65 100 08/12/18 21:01 08/12/18 21:01 08/12/18 21:01 08/12/18 21:01 08/12/18 21:01 - Notes Notes: General Appearance: Well nourished, alert, cooperative, no acute distress, no obvious discomfort. Well-appearing. Vitals: reviewed, See vital signs table. Head: no swelling or tenderness to the head Eyes: PERRL, EOMI, Conjuctiva clear Extremities: strength 5/5 in right leg, very mild tenderness to palpation behind right knee. No swelling. No redness. Good distal pulses in the right foot. Distal sensation intact., no edema. Skin: warm, dry, appropriate color, no rash Neuro: speech clear, oriented x 3, normal affect, responds appropriately to questions. Course - Re-evaluation Re-evalutation: 08/13/18 01:16 Patient's ultrasound was negative for DVT. Patient looks well. She does not have any signs of infection in the leg and that it is not red or swollen or abnormally warm. She probably has a small straining when the ligaments or tendons involving her right knee. Informed her to not do anything exertional next week. I encouraged her to gently stretch her hamstrings. I encouraged her to follow-up with your doctor in 3 to 5 days for reevaluation. She is to return to ER if she has any worsening of her symptoms. Patient agrees with plan and will be discharged home. Dictation of this chart was performed using voice recognition software; therefore, there may be some unintended grammatical errors. - Vital Signs Vital signs: Temp Pulse Resp BP Pulse Ox 98.1 F 67 16 121/65 100 08/12/18 21:01 08/12/18 21:01 08/12/18 21:01 08/12/18 21:01 08/12/18 21:01 Discharge - Discharge Clinical Impression: Right knee pain Qualifiers: Chronicity: acute Qualified Code(s): M25.561 - Pain in right knee Condition: Good Disposition: HOME, SELF-CARE Additional Instructions: Ultrasound of your leg is negative for blood clot in your leg. I suspect you probably have a strain of the ligaments or tendons behind your right knee. Please do not do any running or jogging for the next week. Please do gentle stretching of the hamstrings. Please follow-up with your doctor in 3 to 5 days for reevaluation. Return to ER if you have swelling in your leg, worsening pain, or feel unwell. Referrals: YUMIKO GARCIA JR, MD [NO LOCAL MD] - Follow up in 3-5 days
[2018-08-13 01:58] VITALS: BP 101/58
--- NOTE | 2018-08-13 09:45 | XCELERA REPORT ---
[address] [place] [facility] [address] Lower Extremity Venous Evaluation Procedure: Color flow and duplex imaging of the veins of the right lower extremity as well as the left Common Femoral vein. Right Sided Venous Evaluation Normal vessel filling wall to wall, compression and augmentation as well as Colour flow down to the infrageniculate veins. Left Sided Venous Evaluation The left common femoral vein is fully compressible. Spontaneous and phasic flow is present in the left common femoral vein. Interpretation Summary No duplex evidence of DVT or obstruction in the right lower extremity nor in the left Common Femoral vein. Name: ROSE FLORES Shireen Age: 37 yrs Gender: Female : 1980 Patient Status: Preadmit Patient Location: ER Study Date: 08/12/2018 09:41 PM Reason For Study: pain behind right knee, hx. blood clot Ordering Physician: ARIES CORDOVA Performed By: Charity Steele : ARIES CORDOVA > Stalin Glynn
== END 2018-08-13 02:16 | disposition home or self-care (01) ==
LOC: ER 20:54
DX: M25.561 Pain in right knee (principal); F17.210 Nicotine dependence, cigarettes, uncomplicated; Z86.718 Personal history of other venous thrombosis and embolism; Z88.1 Allergy status to other antibiotic agents
CPT/HCPCS: 93971; 99283

== ENCOUNTER 2019-10-29 19:30 | Emergency (ER) | payer OTHER ==
[2019-10-29 19:49] VITALS: BP 109/58
--- NOTE | 2019-10-29 20:08 | ER Document Report ---
ED Medical Screen (RME) - General Chief Complaint: Leg Pain Stated Complaint: LEG PAIN/HISTORY OF BLOOD CLOTS Time Seen by Provider: 10/29/19 20:03 Notes: Patient presents complaining of pain to the left lower extremity. Patient denies any injury. Patient does report a history of DVT in the past and is concerned about this today. I have greeted and performed a rapid initial assessment of this patient. A comprehensive ED assessment and evaluation of the patient, analysis of test results and completion of the medical decision making process will be conducted by additional ED providers. TRAVEL OUTSIDE OF THE [place] IN LAST 30 DAYS: No - Related Data Allergies/Adverse Reactions: clindamycin Allergy (Severe, Verified 10/29/19 20:02) Hives Past Medical History - Past Medical History Cardiac Medical History: Reports: Hx DVT Renal/ Medical History: Reports: Hx Ectopic , Hx Ovarian Cysts. Denies: Hx Peritoneal Dialysis Psychiatric Medical History: Reports: Hx Anxiety Past Surgical History: Reports: Hx Gynecologic Surgery - Left ectopic removal, Hx Orthopedic Surgery - Immunizations Hx Diphtheria, Pertussis, Tetanus Vaccination: No Physical Exam - Vital signs Vitals: Temp Pulse Resp BP Pulse Ox 99.4 F 73 16 109/58 L 100 10/29/19 19:48 10/29/19 19:48 10/29/19 19:48 10/29/19 19:48 10/29/19 19:48 - General General appearance: Appears well, Alert Notes: Tenderness to left popliteal area and calf, no obvious erythema or swelling Course - Vital Signs Vital signs: Temp Pulse Resp BP Pulse Ox 99.4 F 73 16 109/58 L 100 10/29/19 19:48 10/29/19 19:48 10/29/19 19:48 10/29/19 19:48 10/29/19 19:48
[2019-10-29 20:49] LABS: ABSOLUTE BASOPHILS # (AUTO) 0.1 10^3/uL (0.0-0.2); ABSOLUTE EOSINOPHILS # (AUTO) 0.4 10^3/uL (0.0-0.6); ABSOLUTE LYMPHOCYTES (AUTO) 2.8 10^3/uL (0.5-4.7); ABSOLUTE MONOCYTES (AUTO) 0.6 10^3/uL (0.1-1.4); ABSOLUTE NEUT (AUTO) 6.1 10^3/uL (1.7-8.2); BASOPHILS % (AUTO) 0.7 % (0-2); EOSINOPHILS % (AUTO) 4.1 % (0-6); HEMATOCRIT 44.1 % (36.0-47.0); HEMOGLOBIN 15.2 g/dL (12.0-15.5); MEAN CORPUSCULAR HEMOGLOBIN 31.2 pg (27.0-33.4); MEAN CORPUSCULAR HGB CONC 34.4 g/dL (32.0-36.0); MEAN CORPUSCULAR VOLUME 91 fl (80-97); MONOCYTES % (AUTO) 6.3 % (3-13); PLATELET COUNT 236 10^3/uL (150-450); RED BLOOD COUNT 4.86 10^6/uL (3.72-5.28); RED CELL DISTRIBUTION WIDTH 12.9 % (11.5-14.0); SEGMENTED NEUTROPHILS % (AUTO) 60.9 % (42-78); TOTAL CELLS COUNTED % (AUTO) 100 %; WHITE BLOOD COUNT 10.1 10^3/uL (4.0-10.5)
[2019-10-29 21:04] LABS: BLOOD UREA NITROGEN 13 mg/dL (7-20); CALCIUM 9.5 mg/dL (8.4-10.2); CARBON DIOXIDE 28 mmol/L (22-30); CHLORIDE 105 mmol/L (98-107); CREATINE KINASE 58 U/L (30-135); GLUCOSE 88 mg/dL (75-110); POTASSIUM 4.2 mmol/L (3.6-5.0)
[2019-10-29 22:00] LABS: ANION GAP 4 (5-19)
--- NOTE | 2019-10-29 22:13 | RADIOLOGY REPORT (SQ) ---
EXAM DESCRIPTION: US EXTREMITY VEINS UNILATERAL COMPLETED DATE/TME: 10/29/2019 20:06 CLINICAL HISTORY: 39 years, Female, LLE pain COMPARISON: None. TECHNIQUE: Transverse longitudinal sonographic images of the left lower extremity deep venous system LIMITATIONS: None. FINDINGS: No visible areas of thrombus. Normal compression and augmentation throughout. Doppler images are unremarkable IMPRESSION: Negative exam copyright 2010 [employer]- All Rights Reserved
--- NOTE | 2019-10-30 01:43 | ER Document Report ---
HPI - HPI Time Seen by Provider: 10/29/19 20:03 Pain Level: 2 Context: Patient is a 39-year-old female that comes emergency department for chief complaint of pain to the left leg near the top of the calf and just below the left knee. Symptoms have been present for about 3 days now. She denies any injury. She states that she has a history of SVT while she was , she has a current smoker, she states she just wants to make sure there is no clot in her leg. She denies significant pain, she walks without difficulty, she denies any other complaints. She denies . - REPRODUCTIVE Reproductive: DENIES: : Past Medical History - General Information source: Patient - Social History Smoking Status: Current Every Day Smoker Smoking Education Provided: Yes - <3 min Frequency of alcohol use: None Drug Abuse: None Lives with: Family Family History: Reviewed & Not Pertinent Patient has homicidal ideation: No - Past Medical History Cardiac Medical History: Reports: Hx DVT Renal/ Medical History: Reports: Hx Ectopic , Hx Ovarian Cysts. Denies: Hx Peritoneal Dialysis Psychiatric Medical History: Reports: Hx Anxiety Past Surgical History: Reports: Hx Gynecologic Surgery - Left ectopic removal, Hx Orthopedic Surgery - Immunizations Hx Diphtheria, Pertussis, Tetanus Vaccination: No Vertical Provider Document - CONSTITUTIONAL General Appearance: WD/WN, No Apparent Distress - INFECTION CONTROL TRAVEL OUTSIDE OF THE [place] IN LAST 30 DAYS: No - HEENT HEENT: Atraumatic, Normal ENT Exam, Normocephalic - NECK Neck: Normal Inspection - RESPIRATORY Respiratory: Breath Sounds Normal, No Respiratory Distress - CARDIOVASCULAR Cardiovascular: Regular Rate, Regular Rhythm. negative: Tachycardia - GI/ABDOMEN Gastrointestinal: Abdomen Soft, Abdomen Non-Tender. negative: Abdomen Tender - BACK Back: Normal Inspection - MUSCULOSKELETAL/EXTREMETIES Musculoskeletal/Extremeties: MAEW, FROM, Non-Tender. negative: Tender - No tenderness, swelling, erythema, or abnormal finding noted over either lower ex tremity. Normal distal neurovascular exam. - NEURO Level of Consciousness: Awake, Alert, Appropriate Motor/Sensory: No Motor Deficit, No Sensory Deficit - DERM Integumentary: Warm, Dry, No Rash Course - Re-evaluation Re-evalutation: Patient is well-appearing on my exam, she ambulates without any difficulty, I do not appreciate any edema or swelling, there is no erythema or noted tenderness on exam either. I did review work-up from triage including CBC, chemistry, and venous Doppler ultrasound, these were all unremarkable and negative. I discussed this with patient, she is very relieved. I did recommend smoking cessation, I discussed follow-up, I discussed return precautions. Patient states appreciation and agreement. Stable and well-appearing at time of discharge. - Vital Signs Vital signs: Temp Pulse Resp BP Pulse Ox 99.4 F 73 16 109/58 L 100 10/29/19 19:48 10/29/19 19:48 10/29/19 19:48 10/29/19 19:48 10/29/19 19:48 - Laboratory Result Diagrams: 10/29/19 20:35 10/29/19 20:35 Laboratory results interpreted by me: 10/29/19 20:35 Anion Gap 4 L Discharge - Discharge Clinical Impression: Left leg pain Condition: Stable Disposition: HOME, SELF-CARE Additional Instructions: Your ultrasound does not show a clot, your labs are normal, your exam and symptoms suggest that this is a strain of the muscle and tendons in your leg. You can ice the area, rest the area for the next week if possible, take the anti-inflammatory as prescribed. Stop smoking. Follow-up with primary care. Return if any concerning symptoms including severe worsening swelling or pain. Prescriptions: Naproxen [Naprosyn 375 Mg Tablet] 375 mg PO BID #20 tablet Referrals: JADIEL CAMARILLO PA-C [Primary Care Provider] - Follow up as needed
== END 2019-10-30 01:45 | disposition home or self-care (01) ==
LOC: ER 19:30
DX: M79.605 Pain in left leg (principal); F17.200 Nicotine dependence, unspecified, uncomplicated; Z86.718 Personal history of other venous thrombosis and embolism
CPT/HCPCS: 36415; 80048; 82550; 85025; 93971; 99284